=== PATIENT | female | born 1985 | race Caucasian/White ===

== ENCOUNTER 2016-09-01 19:40 | Emergency (ER) | payer OTHER ==
[2016-09-01 19:58] VITALS: RESP 18
--- NOTE | 2016-09-01 23:06 | ED ---
Psych HPI - General Source: patient, RN notes reviewed, old records reviewed Mode of arrival: ambulatory <MichelleMy - Last Filed: 09/02/16 02:41> <Vj Khan - Last Filed: 09/02/16 06:13> - General Chief Complaint: Psychiatric Symptoms Stated Complaint: suicidal Time Seen by Provider: 09/01/16 23:06 - History of Present Illness Initial Comments: this is a 30-year-old female presenting to the emergency department with chief complaint of suicidal ideation. She also reports that she's had thoughts of homicidal ideations. She was not coming U she would want to kill. Patient reports that she thought about trying falling asleep. Patient states that she' s been admitted for inpatient treatment in the past. She states that she does have medications and follows up with [facility] and takes them regularly. She reports that she's been feeling this way over the past few weeks. Patient is here with her friend. Friend reports that she has been somewhat neglectful to her children. Patient is very withdrawn. (My Martinez) - Related Data Home Medications Medication Instructions Recorded Confirmed [place] Carbonate 300 mg PO DAILY 09/01/16 09/01/16 Lurasidone [Latuda] 40 mg PO DAILY 09/01/16 09/01/16 Allergies Allergy/AdvReac Type Severity Reaction Status Date / Time acetaminophen Allergy Unknown Verified 09/01/16 19:58 [From Tylenol-Codeine #3] codeine phosphate Allergy Unknown Verified 09/01/16 19:58 [From Tylenol-Codeine #3] Review of Systems ROS Other: All systems not noted in ROS Statement are negative. <Cele Martinezily - Last Filed: 09/02/16 02:41> ROS Other: All systems not noted in ROS Statement are negative. <Vj Khan - Last Filed: 09/02/16 06:13> ROS Statement: Those systems with pertinent positive or pertinent negative responses have been documented in the HPI. Past Medical History Past Medical History: No Reported History Additional Past Medical History / Comment(s): First was a Vaginal Delivery in 2006, 9 lbs. 1 ounce. This is her second . she has had good care with me since 11 weeks gestation.her blood type is A+ antibody is negative, rubella immune, RPR nonreactive, HIV nonreactive, hepatitis B negative. She declined quad screen but had a normal anatomy ultrasoundat 19 weeks. group beta strep is negative. History of Any Multi-Drug Resistant Organisms: None Reported Past Surgical History: Orthopedic Surgery Additional Past Surgical History / Comment(s): 1.surgery on right leg 2003, cornelius in her femur. 2. LEEP Past Anesthesia/Blood Transfusion Reactions: No Reported Reaction Past Psychological History: Anxiety, Bipolar, Depression Smoking Status: Current every day smoker Past Alcohol Use History: None Reported Past Drug Use History: None Reported <My Martinez - Last Filed: 09/02/16 02:41> General Exam Limitations: no limitations General appearance: alert, in no apparent distress Head exam: Present: atraumatic, normocephalic, normal inspection Eye exam: Present: normal appearance, PERRL, EOMI. Absent: scleral icterus, conjunctival injection, periorbital swelling ENT exam: Present: normal exam, mucous membranes moist Neck exam: Present: normal inspection. Absent: tenderness, meningismus, lymphadenopathy Respiratory exam: Present: normal lung sounds bilaterally. Absent: respiratory distress, wheezes, rales, rhonchi, stridor Cardiovascular Exam: Present: regular rate, normal rhythm, normal heart sounds. Absent: systolic murmur, diastolic murmur, rubs, gallop, clicks GI/Abdominal exam: Present: soft, normal bowel sounds. Absent: distended, tenderness, guarding, rebound, rigid Extremities exam: Present: normal inspection, full ROM, normal capillary refill. Absent: tenderness, pedal edema, joint swelling, calf tenderness Back exam: Present: normal inspection Neurological exam: Present: alert, oriented X3, CN II-XII intact Psychiatric exam: Present: normal affect, depressed, homicidal ideation, suicidal ideation (Patient reports that she wants to harm herself. Patient reports that she does not care if she would turn the stove on and follow sleep. She reports that it she would even do this of her children were in the house.) . Absent: normal mood Skin exam: Present: warm, dry, intact, normal color. Absent: rash <My Martinez - Last Filed: 09/02/16 02:41> <Vj Khan - Last Filed: 09/02/16 06:13> - General Exam Comments Initial Comments: This is a 30-year-old female. No distress. (My Martinez) Medical Decision Making <My Martinez - Last Filed: 09/02/16 02:41> - Lab Data Result diagrams: 09/02/16 04:25 09/02/16 04:25 <Vj Khan - Last Filed: 09/02/16 06:13> - Medical Decision Making This is a 30-year-old female with suicidal ideations. Patient was evaluated by EPS after being medically clear. EPS stated that she may have multiple alarming statements about suicide and homicide. Patient will be petitioned. At this time patient will be in a psychiatric hold in the emergency department until his available bed is there. (My Martinez) Briefly spoke with patient, who had been sleeping, in order to fill clinical certification. I saw this patient in conjunction with the physician assistant clinical nurse manager. I performed independent history and physical exam. Agree with case management. (Vj Khan) - Lab Data Lab Results 09/02/16 09/02/16 09/02/16 Range/Units 01:18 01:18 04:25 WBC 5.2 (3.8-10.6) k/uL RBC 4.66 (3.80-5.40) m/uL Hgb 13.8 (11.4-16.0) gm/dL Hct 40.6 (34.0-46.0) % MCV 87.3 (80.0-100.0) fL MCH 29.7 (25.0-35.0) pg MCHC 34.0 (31.0-37.0) g/dL RDW 12.7 (11.5-15.5) % Plt Count 152 (150-450) k/uL Sodium (137-145) mmol/L Potassium (3.5-5.1) mmol/L Chloride (98-107) mmol/L Carbon Dioxide (22-30) mmol/L Anion Gap mmol/L BUN (7-17) mg/dL Creatinine (0.52-1.04) mg/dL Est GFR (MDRD) Af Amer (>60 ml/min/1.73 sqM) Est GFR (MDRD) Non-Af (>60 ml/min/1.73 sqM) Glucose (74-99) mg/dL Calcium (8.4-10.2) mg/dL Total Bilirubin (0.2-1.3) mg/dL AST (14-36) U/L ALT (9-52) U/L Alkaline Phosphatase (38-126) U/L Total Protein (6.3-8.2) g/dL Albumin (3.5-5.0) g/dL Urine Color Yellow Urine Appearance Cloudy H (Clear) Urine pH 5.5 (5.0-8.0) Ur Specific [place] 1.026 (1.001-1.035) Urine Protein Trace H (Negative) Urine Glucose (UA) Negative (Negative) Urine Ketones Negative (Negative) Urine Blood Negative (Negative) Urine Nitrite Negative (Negative) Urine Bilirubin Negative (Negative) Urine Urobilinogen 4.0 (<2.0) mg/dL Ur Leukocyte Esterase Negative (Negative) Urine RBC <1 (0-5) /hpf Urine WBC 2 (0-5) /hpf Ur Squamous Epith Cells 7 H (0-4) /hpf Amorphous Sediment Rare H (None) /hpf Urine Bacteria Rare H (None) /hpf Urine Mucus Few H (None) /hpf Urine HCG, Qual Not Detected (Not Detectd) Urine Opiates Screen Not Detected (NotDetected) Ur Oxycodone Screen Not Detected (NotDetected) Urine Methadone Screen Not Detected (NotDetected) Ur Propoxyphene Screen Not Detected (NotDetected) Ur Barbiturates Screen Not Detected (NotDetected) U Tricyclic Antidepress Not Detected (NotDetected) Ur Phencyclidine Scrn Not Detected (NotDetected) Ur Amphetamines Screen Not Detected (NotDetected) U Methamphetamines Scrn Not Detected (NotDetected) U Benzodiazepines Scrn Not Detected (NotDetected) Urine Cocaine Screen Not Detected (NotDetected) U Marijuana (THC) Screen Detected H (NotDetected) 09/02/16 Range/Units 04:25 WBC (3.8-10.6) k/uL RBC (3.80-5.40) m/uL Hgb (11.4-16.0) gm/dL Hct (34.0-46.0) % MCV (80.0-100.0) fL MCH (25.0-35.0) pg MCHC (31.0-37.0) g/dL RDW (11.5-15.5) % Plt Count (150-450) k/uL Sodium 139 (137-145) mmol/L Potassium 4.1 (3.5-5.1) mmol/L Chloride 106 (98-107) mmol/L Carbon Dioxide 25 (22-30) mmol/L Anion Gap 8 mmol/L BUN 7 (7-17) mg/dL Creatinine 0.80 (0.52-1.04) mg/dL Est GFR (MDRD) Af Amer >60 (>60 ml/min/1.73 sqM) Est GFR (MDRD) Non-Af >60 (>60 ml/min/1.73 sqM) Glucose 89 (74-99) mg/dL Calcium 9.5 (8.4-10.2) mg/dL Total Bilirubin 0.4 (0.2-1.3) mg/dL AST 46 H (14-36) U/L ALT 99 H (9-52) U/L Alkaline Phosphatase 49 (38-126) U/L Total Protein 6.2 L (6.3-8.2) g/dL Albumin 3.7 (3.5-5.0) g/dL Urine Color Urine Appearance (Clear) Urine pH (5.0-8.0) Ur Specific [place] (1.001-1.035) Urine Protein (Negative) Urine Glucose (UA) (Negative) Urine Ketones (Negative) Urine Blood (Negative) Urine Nitrite (Negative) Urine Bilirubin (Negative) Urine Urobilinogen (<2.0) mg/dL Ur Leukocyte Esterase (Negative) Urine RBC (0-5) /hpf Urine WBC (0-5) /hpf Ur Squamous Epith Cells (0-4) /hpf Amorphous Sediment (None) /hpf Urine Bacteria (None) /hpf Urine Mucus (None) /hpf Urine HCG, Qual (Not Detectd) Urine Opiates Screen (NotDetected) Ur Oxycodone Screen (NotDetected) Urine Methadone Screen (NotDetected) Ur Propoxyphene Screen (NotDetected) Ur Barbiturates Screen (NotDetected) U Tricyclic Antidepress (NotDetected) Ur Phencyclidine Scrn (NotDetected) Ur Amphetamines Screen (NotDetected) U Methamphetamines Scrn (NotDetected) U Benzodiazepines Scrn (NotDetected) Urine Cocaine Screen (NotDetected) U Marijuana (THC) Screen (NotDetected) Disposition <My Martinez - Last Filed: 09/02/16 02:41> <Vj Khan - Last Filed: 09/02/16 06:13> Clinical Impression: Mood disorder Disposition: ADMITTED IP TO THIS HOSP Condition: Fair Referrals: Isael Bazan MD [Primary Care Provider] - 1-2 days
[2016-09-02 01:50] LABS: Amorphous Sediment,Urine Rare /hpf; Appearance,Urine Cloudy (Clear); Bacteria,Urine Rare /hpf; Bilirubin,Urine Negative (Negative); Glucose,Urine (UA) Negative (Negative); Ketones,Urine Negative (Negative); Leukocyte Esterase,Urine Negative (Negative); Mucus,Urine Few /hpf; Nitrite,Urine Negative (Negative); PH, Urine 5.5 (5.0-8.0); Particle Count 7014; Protein,Urine Trace (Negative); RBC,Urine <1 /hpf (0-5); Specific Gravity,Urine 1.026 (1.001-1.035); Squamous Epithelial Cell,Urine 7 /hpf (0-4); UA Billing (MACRO vs. MICRO) MICRO; WBC,Urine 2 /hpf (0-5)
[2016-09-02 04:36] LABS: Basophils # (A) 0.1 k/uL (0-0.2); Basophils % (A) 1 %; CH 29.7; CHCM 34.2; Eosinophils # (A) 0.3 k/uL (0-0.7); Eosinophils % (A) 6 %; HCT 40.6 % (34.0-46.0); HDW 2.62; HGB 13.8 gm/dL (11.4-16.0); Luc # (Auto) 0.12; Luc % (Auto) 2; Lymphocytes # (A) 2.6 k/uL (1.0-4.8); Lymphocytes % (A) 50 %; MCH 29.7 pg (25.0-35.0); MCV 87.3 fL (80.0-100.0); Mean Platelet Volume 8.5; Monocytes # (A) 0.2 k/uL (0-1.0); Monocytes % (A) 5 %; Neutrophils # (A) 1.9 k/uL (1.3-7.7); Neutrophils % (A) 37 %; RBC 4.66 m/uL (3.80-5.40); RDW 12.7 % (11.5-15.5); WBC 5.2 k/uL (3.8-10.6); WBC (Perox) 4.97
[2016-09-02 04:46] LABS: ALT 99 U/L (9-52); AST 46 U/L (14-36); Alkaline Phosphatase 49 U/L (38-126); Anion Gap 8 mmol/L; Blood Urea Nitrogen 7 mg/dL (7-17); Calcium 9.5 mg/dL (8.4-10.2); Carbon Dioxide 25 mmol/L (22-30); Chloride 106 mmol/L (98-107); Glucose 89 mg/dL (74-99); Non-African American GFR(MDRD) >60 (>60 ml/min/1.73 sqM); Potassium 4.1 mmol/L (3.5-5.1); Sodium 139 mmol/L (137-145); Total Bilirubin 0.4 mg/dL (0.2-1.3); Total Protein 6.2 g/dL (6.3-8.2)
[2016-09-02 07:39] LABS: Manual Review Performed; RBC Morphology Normal
[2016-09-02 09:24] VITALS: BP 93/61; PULSE 68; TEMP 98.1
== END 2016-09-02 09:24 | disposition other institution (70) ==
LOC: SUPCPDRO 19:40 → EC 19:40
DX: F39 Unspecified mood [affective] disorder (principal); R45.851 Suicidal ideations; R45.850 Homicidal ideations; F31.9 Bipolar disorder, unspecified; F41.9 Anxiety disorder, unspecified; F17.200 Nicotine dependence, unspecified, uncomplicated; Z79.899 Other long term (current) drug therapy; Z88.6 Allergy status to analgesic agent; Z88.5 Allergy status to narcotic agent
CPT/HCPCS: 36415; 80053; 80306; 81001; 81025; 82075; 85025; 99285

== ENCOUNTER 2016-09-10 17:46 | Emergency (ER) | payer OTHER ==
[2016-09-10 17:53] VITALS: BP 114/60; PULSE 100; RESP 18; TEMP 98.1
--- NOTE | 2016-09-10 18:10 | ED ---
Back Pain HPI - General Chief Complaint: Back Pain/Injury Stated Complaint: back pain Time Seen by Provider: 09/10/16 18:02 Source: patient, RN notes reviewed Limitations: no limitations - History of Present Illness Initial Comments: 30 yo female presents to the ER with cc of right sided back pain. At this time the patient states she's had the pain off for about 6 months. Patient states his long the right side of her back. Patient states that she had an ultrasound to rule out anything in the abdomen and that showed enlarged been otherwise no normality. Patient states it's been the same. Patient states on and off. Patient states touching seems to make it worse. Patient states she was concerned due to the continued pain so she thought that she should be evaluated. Patient denies any recent fever, chills, shortness of breath, chest pain, back pain, abdominal pain, nausea vomiting, numbness or tingling, dysuria or hematuria, constipation or diarrhea, headaches or visual changes, or any other current symptoms. - Related Data Home Medications Medication Instructions Recorded Confirmed [place] Carbonate 300 mg PO DAILY 09/01/16 09/01/16 Lurasidone [Latuda] 40 mg PO DAILY 09/01/16 09/01/16 Allergies Allergy/AdvReac Type Severity Reaction Status Date / Time acetaminophen Allergy Unknown Verified 09/10/16 17:53 [From Tylenol-Codeine #3] codeine phosphate Allergy Unknown Verified 09/10/16 17:53 [From Tylenol-Codeine #3] Review of Systems ROS Statement: Those systems with pertinent positive or pertinent negative responses have been documented in the HPI. ROS Other: All systems not noted in ROS Statement are negative. Past Medical History Past Medical History: No Reported History Additional Past Medical History / Comment(s): First was a Vaginal Delivery in 2006, 9 lbs. 1 ounce. This is her second . she has had good care with me since 11 weeks gestation.her blood type is A+ antibody is negative, rubella immune, RPR nonreactive, HIV nonreactive, hepatitis B negative. She declined quad screen but had a normal anatomy ultrasoundat 19 weeks. group beta strep is negative. History of Any Multi-Drug Resistant Organisms: None Reported Past Surgical History: Orthopedic Surgery Additional Past Surgical History / Comment(s): 1.surgery on right leg 2003, cornelius in her femur. 2. LEEP Past Anesthesia/Blood Transfusion Reactions: No Reported Reaction Past Psychological History: Anxiety, Bipolar, Depression Smoking Status: Current every day smoker Past Alcohol Use History: None Reported Past Drug Use History: None Reported General Exam - General Exam Comments Initial Comments: General: The patient is awake and alert, in no distress, and does not appear acutely ill. Eye: Pupils are equal, round and reactive to light, extra-ocular movements are intact; there is normal conjunctiva bilaterally. No signs of icterus. Ears, nose, mouth and throat: There are moist mucous membranes. Neck: The neck is supple, there is no tenderness. Cardiovascular: There is a regular rate and rhythm. No murmur, rub or gallop is appreciated. Respiratory: Lungs are clear to auscultation, respirations are non-labored, breath sounds are equal. No wheezes, stridor, rales, or rhonchi. Gastrointestinal: Soft, non-distended, non-tender abdomen without masses or organomegaly noted. There is no rebound or guarding present. No CVA tenderness. Bowel sounds are unremarkable. Back: There is no tenderness to palpation in the midline. There is no obvious deformity. No rashes noted. There is some tenderness patient along the right paraspinal region through the lower thoracic and lumbar spine Musculoskeletal: Normal ROM, no tenderness, There is no pedal edema. There is no calf tenderness or swelling. Sensation intact. Pulses equal bilaterally 2+. Neurological: CN II-XII intact, There are no obvious motor or sensory deficits. Coordination appears grossly intact. Speech is normal. Skin: Skin is warm and dry and no rashes or lesions are noted. Psychiatric: Cooperative, appropriate mood & affect, normal judgment. Limitations: no limitations Course Vital Signs 09/10/16 17:51 Temperature 98.1 F Pulse Rate 100 Respiratory 18 Rate Blood Pressure 114/60 O2 Sat by Pulse 99 Oximetry Medical Decision Making - Medical Decision Making 30-year-old female presents for right side pain that is more paraspinal in nature. At this time we'll get x-rays patient's back. This x-ray is reviewed and negative. We discussed that this and patient makes likely has a lumbar strain that she keeps irritating. We discussed we will start her Motrin. Discussed follow-up with her Dr. mehran toussaint. Patient states she understood all questions were answered. She'll be discharged home. - Radiology Data Radiology results: report reviewed, image reviewed Disposition Clinical Impression: Lumbar strain Disposition: HOME SELF-CARE Condition: Stable Instructions: Chronic Back Pain (ED) Additional Instructions: Please use medication as discussed. Please follow up with family doctor if symptoms have not improved over the next two days. Please return to the emergency room if your symptoms increase or worsen or for any other concerns. Referrals: Isael Bazan MD [Primary Care Provider] - 1-2 days Time of Disposition: 18:37
--- NOTE | 2016-09-10 18:33 | XR ---
EXAMINATION TYPE: XR thoracic spine 2V DATE OF EXAM: 09/10/2016 6:28 PM COMPARISON: NONE HISTORY: Back pain TECHNIQUE: 3 views FINDINGS: The thoracic vertebra have normal spacing and alignment. I see no compression fracture. Pos terior elements are intact. There is no sign of paraspinal mass. IMPRESSION: Negative thoracic spine exam
--- NOTE | 2016-09-10 18:34 | XR ---
EXAMINATION TYPE: XR lumbar spine 2 or 3V DATE OF EXAM: 09/10/2016 6:28 PM COMPARISON: NONE HISTORY: Back pain TECHNIQUE: 3 views FINDINGS: Lumbar vertebra normal spacing and alignment. Posterior elements are intact. There is no si gn of a fracture. IMPRESSION: Normal lumbar spine. Normal sacroiliac joints.
== END 2016-09-10 18:42 | disposition home or self-care (01) ==
LOC: EC 17:46
DX: S39.012A Strain of muscle, fascia and tendon of lower back, initial encounter (principal); F31.9 Bipolar disorder, unspecified; F17.200 Nicotine dependence, unspecified, uncomplicated; Z79.899 Other long term (current) drug therapy; Z88.5 Allergy status to narcotic agent; Z88.6 Allergy status to analgesic agent; X58.XXXA Exposure to other specified factors, initial encounter
CPT/HCPCS: 72070; 72100; 99283

== ENCOUNTER 2016-11-03 14:04 | Inpatient (IN) | payer MEDICAID, OTHER ==
--- NOTE | 2016-11-03 14:22 | ED ---
General Adult HPI - General Chief complaint: Psychiatric Symptoms Stated complaint: Mental Health Time Seen by Provider: 11/03/16 14:16 Source: patient, RN notes reviewed Mode of arrival: ambulatory Limitations: no limitations - History of Present Illness Initial comments: Patient 31-year-old female who presents emergency room today with chief complaint of suicidal ideation. She does admit that over the last week and # increased thoughts. She does admit that she thought about cutting her wrist earlier today. She states that she did go to her counselor today but did not bring this up. States she's been unhappy with her counselor. Patient denies any other physical complaints. Denies any auditory or visual hallucinations. Denies any homicidal thoughts or plans. Patient denies any recent fever, chills , shortness of breath, chest pain, back pain, abdominal pain, nausea or vomiting , numbness or tingling, dysuria or hematuria, constipation or diarrhea, headaches or visual changes, or any other complaints. - Related Data Home Medications Medication Instructions Recorded Confirmed Gabapentin [Neurontin] 100 mg PO TID 11/03/16 11/03/16 OXcarbazepine [Trileptal] 300 mg PO BID 11/03/16 11/03/16 Paliperidone IM [Invega Sustenna] 156 mg IM Q30D 11/03/16 11/03/16 Allergies Allergy/AdvReac Type Severity Reaction Status Date / Time acetaminophen Allergy Unknown Verified 11/03/16 14:35 [From Tylenol-Codeine #3] codeine phosphate Allergy Unknown Verified 11/03/16 14:35 [From Tylenol-Codeine #3] Review of Systems ROS Statement: Those systems with pertinent positive or pertinent negative responses have been documented in the HPI. ROS Other: All systems not noted in ROS Statement are negative. Past Medical History Past Medical History: No Reported History Additional Past Medical History / Comment(s): First was a Vaginal Delivery in 2006, 9 lbs. 1 ounce. This is her second . she has had good care with ri since 11 weeks gestation.her blood type is A+ antibody is negative, rubella immune, RPR nonreactive, HIV nonreactive, hepatitis B negative. She declined quad screen but had a normal anatomy ultrasoundat 19 weeks. group beta strep is negative. History of Any Multi-Drug Resistant Organisms: None Reported Past Surgical History: Orthopedic Surgery Additional Past Surgical History / Comment(s): 1.surgery on right leg 2003, cornelius in her femur. 2. LEEP Past Anesthesia/Blood Transfusion Reactions: No Reported Reaction Past Psychological History: Anxiety, Bipolar, Depression Smoking Status: Current every day smoker Past Alcohol Use History: None Reported Past Drug Use History: None Reported General Exam - General Exam Comments Initial Comments: General: The patient is awake and alert, in no distress, and does not appear acutely ill. Eye: Pupils are equal, round and reactive to light, extra-ocular movements are intact. No nystagmus. There is normal conjunctiva bilaterally. No signs of icterus. Ears, nose, mouth and throat: There are moist mucous membranes and no oral lesions. Neck: The neck is supple, there is no tenderness or JVD. Cardiovascular: There is a regular rate and rhythm. No murmur, rub or gallop is appreciated. Respiratory: Lungs are clear to auscultation, respirations are non-labored, breath sounds are equal. No wheezes, stridor, rales, or rhonchi. Musculoskeletal: Normal ROM, no tenderness. Strength 5/5. Sensation intact. Pulses equal bilaterally 2+. Neurological: A&O x 3. CN II-XII intact, There are no obvious motor or sensory deficits. Coordination appears grossly intact. Speech is normal. Skin: Skin is warm and dry and no rashes or lesions are noted. Psychiatric: Cooperative, appropriate mood & affect, normal judgment. Limitations: no limitations Course Vital Signs 11/03/16 14:07 Temperature 98.7 F Pulse Rate 75 Respiratory 18 Rate Blood Pressure 108/61 O2 Sat by Pulse 99 Oximetry Medical Decision Making - Medical Decision Making Patient was examined by Psych here in the ER and they recommend to be admitted. - Lab Data Lab Results 11/03/16 11/03/16 Range/Units 15:08 15:08 Urine HCG, Qual Not Detected (Not Detectd) Urine Opiates Screen Not Detected (NotDetected) Ur Oxycodone Screen Not Detected (NotDetected) Urine Methadone Screen Not Detected (NotDetected) Ur Propoxyphene Screen Not Detected (NotDetected) Ur Barbiturates Screen Not Detected (NotDetected) U Tricyclic Antidepress Not Detected (NotDetected) Ur Phencyclidine Scrn Not Detected (NotDetected) Ur Amphetamines Screen Not Detected (NotDetected) U Methamphetamines Scrn Not Detected (NotDetected) U Benzodiazepines Scrn Not Detected (NotDetected) Urine Cocaine Screen Not Detected (NotDetected) U Marijuana (THC) Screen Detected H (NotDetected) Disposition Clinical Impression: Suicidal ideation Disposition: TRANSFER TO PSYCH HOSP/UNIT Condition: Stable Referrals: Isael Bazan MD [Primary Care Provider] - 1-2 days Time of Disposition: 16:31
[2016-11-03] MEDS ORDERED: ZIPRASIDONE 20 MG VIAL IM PRN (17:09)
[2016-11-03] MEDS ORDERED: LORazepam 1 MG TAB PO PRN (17:09)
[2016-11-03] MEDS ORDERED: MAG HYDROX/AL HYDROX/SIMETH 30 ML CUP PO PRN (17:09)
[2016-11-03] MEDS ORDERED: ACETAMINOPHEN TAB 325 MG TAB PO PRN (17:09)
[2016-11-03] MEDS ORDERED: LORazepam 2 MG/ML SYRINGE IM PRN (17:13)
[2016-11-03] MEDS: GABAPENTIN 100 MG CAP PO SCH (20:44)
[2016-11-03] MEDS: OXcarbazepine 300 MG TAB PO SCH (20:44)
[2016-11-04] MEDS: GABAPENTIN 100 MG CAP PO SCH (09:27)
[2016-11-04] MEDS: NICOTINE 14MG/24HR PATCH TRANSDERM SCH (09:27)
[2016-11-04] MEDS: OXcarbazepine 300 MG TAB PO SCH ×2 (09:27→21:08)
[2016-11-04 09:37] LABS: Basophils # (A) 0.1 k/uL (0-0.2); Basophils % (A) 1 %; CH 29.6; CHCM 33.9; Eosinophils # (A) 0.2 k/uL (0-0.7); Eosinophils % (A) 4 %; HCT 44.7 % (34.0-46.0); HDW 2.43; HGB 15.1 gm/dL (11.4-16.0); Luc # (Auto) 0.05; Luc % (Auto) 1; Lymphocytes # (A) 1.8 k/uL (1.0-4.8); Lymphocytes % (A) 41 %; MCH 29.5 pg (25.0-35.0); MCHC 33.6 g/dL (31.0-37.0); MCV 87.7 fL (80.0-100.0); Mean Platelet Volume 8.9; Monocytes # (A) 0.1 k/uL (0-1.0); Monocytes % (A) 3 %; Neutrophils # (A) 2.2 k/uL (1.3-7.7); Neutrophils % (A) 50 %; RDW 13.3 % (11.5-15.5); WBC 4.3 k/uL (3.8-10.6); WBC (Perox) 4.08
[2016-11-04 10:11] LABS: ALT 38 U/L (9-52); AST 20 U/L (14-36); Alkaline Phosphatase 45 U/L (38-126); Anion Gap 9 mmol/L; Blood Urea Nitrogen 12 mg/dL (7-17); Calcium 9.7 mg/dL (8.4-10.2); Carbon Dioxide 26 mmol/L (22-30); Chloride 105 mmol/L (98-107); Glucose 109 mg/dL (74-99); Non-African American GFR(MDRD) >60 (>60 ml/min/1.73 sqM); Potassium 4.1 mmol/L (3.5-5.1); Sodium 140 mmol/L (137-145); Total Bilirubin 0.4 mg/dL (0.2-1.3); Total Protein 6.9 g/dL (6.3-8.2)
--- NOTE | 2016-11-04 10:51 | P.HP ---
Psychiatric H&P - . H&P Date: 11/04/16 History & Physical: Allergies Allergy/AdvReac Type Severity Reaction Status Date / Time acetaminophen Allergy Unknown Verified 11/03/16 14:35 [From Tylenol-Codeine #3] codeine phosphate Allergy Unknown Verified 11/03/16 14:35 [From Tylenol-Codeine #3] Vital Signs Temp 97.9 F 11/04/16 06:57 Pulse 61 11/04/16 06:57 Resp 12 11/04/16 06:57 BP 90/54 11/04/16 06:57 Pulse Ox 95 11/03/16 19:42 Intake & Output 11/03/16 11/04/16 11/04/16 18:59 06:59 18:59 Weight 61.235 kg Laboratory Last Values Urine HCG, Qual Not Detected (Not Detectd) 11/03/16 15:08 Urine Opiates Screen Not Detected (NotDetected) 11/03/16 15:08 Ur Oxycodone Screen Not Detected (NotDetected) 11/03/16 15:08 Urine Methadone Screen Not Detected (NotDetected) 11/03/16 15:08 Ur Propoxyphene Screen Not Detected (NotDetected) 11/03/16 15:08 Ur Barbiturates Screen Not Detected (NotDetected) 11/03/16 15:08 U Tricyclic Antidepress Not Detected (NotDetected) 11/03/16 15:08 Ur Phencyclidine Scrn Not Detected (NotDetected) 11/03/16 15:08 Ur Amphetamines Screen Not Detected (NotDetected) 11/03/16 15:08 U Methamphetamines Scrn Not Detected (NotDetected) 11/03/16 15:08 U Benzodiazepines Scrn Not Detected (NotDetected) 11/03/16 15:08 Urine Cocaine Screen Not Detected (NotDetected) 11/03/16 15:08 U Marijuana (THC) Screen Detected (NotDetected) H 11/03/16 15:08 11/04/16 08:32 DATE OF SERVICE: 11/04/2016 IDENTIFYING DATA: This patient is a 31-year-old single female who was admitted to the mental health unit through the emergency room on a voluntary admit. HISTORY OF PRESENT ILLNESS: The patient presents with depressed mood, and suicidal ideation. Patient states that she has not felt good for a long time and now is feeling worse over the last 2 weeks. States she was admitted to [facility] in August and she was placed on Trileptal, paliperidone injection, and gabapentin. States that she thought this was working well and still thinks it is working and does not want to have any meds changed contrary to what she said in the emergency room. She states that she was taking the gabapentin 3 times a day but felt out of it so she stopped the midday dose now only taking it morning and bedtime. Patient states that she feels that she just doesn't want to live anymore. States she does not think about her children because that might stop her from taking her life. Patient states that she's been treated for a number of years for bipolar disorder, reports she's been on Abilify, Seroquel, lithium, and states that at one point her nurse practitioner was giving her antidepressants that made her worse. She has a 9- year-old and a 3-year-old she reports because of the children she cannot attend groups at [facility]. States she doesn't like to do something that's new that her therapist is trying to do with her such as coping skills. She denies that she' s ever cut herself burned herself or other self-injurious behavior. She is currently on a 60[address] order.. She did not mention anything about CPS. PAST PSYCHIATRIC HISTORY: Was hospitalized at [facility] this past August, all of her meds were stopped and they started her on Trileptal 300 mg twice a day, paliperidone was started she received her injection yesterday, and gabapentin.. PAST MEDICAL HISTORY: None. ALLERGIES: Acetaminophen codeine. CHEMICAL DEPENDENCY HISTORY: Reports that she stop smoking marijuana about 2 weeks ago. Denies other drugs or alcohol. FAMILY PSYCHIATRIC HISTORY: Her mother is schizophrenic, she does not know about her brother and sister they have mental illness. FAMILY CHEMICAL DEPENDENCY HISTORY: Unaware. LEGAL HISTORY: Denies. SOCIAL HISTORY: Patient lives with HER-2 children age 9 and 3, the father of the 9 year-old is in fpc for 24 years, the 3-year-old father has never been involved in the child. MENTAL STATUS EXAM: Patient alert and oriented 3, good eye contact, fair groomed in hospital attire/street clothing. Speech normal volume, rate and production. Coherent, logical and goal directed thought process. No JANINA, no FOI. No TB/TW/ TI Denied auditory and visual hallucinations. Denied paranoid ideation, delusions or IOR. Memory grossly intact Cognition average Mood sad, dysphoric, affect and constricted, congruent with mood. + suicidal ideation, denies homicidal ideation. Insight none; Judgment grossly intact for treatment purposes . STRENGTHS: Housing. WEAKNESSES: Poor coping skills. IMPRESSIONS: 31-year-old single female came to the emergency room on her own for suicidal ideation that has increased over the past 2 weeks. She met with her counselor yesterday and did not report this, she had her paliperidone injection yesterday. She told the emergency room staff that she was interested in changing meds as they were not working, now she states they are working and does not want any change or addition. She reports chronic suicidal ideation, with chronic dysphoria. She cannot recall the last time that she was manic. She denies hearing voices, denies having command hallucinations. Although she denies self injurious behavior she has had thoughts of cutting. Although it may not have a direct effect the possibility that she is going through cannabis withdrawal may be part of this mood change. She remains suicidal, dysphoric,hopeless, feeling worthless. Bipolar disorder type I,MRE depressed Suicide ideation Cannabis use disorder, severe, in early remission PLAN: Continue inpatient psychiatric admission for safety, and treatment. Suicide precautions and every 15 minute checks Continue Trileptal, continue paliperidone injection/long acting, continue gabapentin increase the bedtime dose.. Recommend to [facility] increased intensity of treatment, coping skills CBT. Milieu therapy 11/04/16 10:19
[2016-11-04] MEDS ORDERED: GABAPENTIN 100 MG CAP PO SCH (21:00)
--- NOTE | 2016-11-05 09:15 | HP ---
Andre Anderson is a 31-year-old female who was admitted to the Psychiatric Unit at [facility]. She had come in with the chief complaint of suicidal ideation. She thought about cutting her wrist. She was unhappy with her counselor and came in for further evaluation. Medications prior to admission were gabapentin, Trileptal and paliperidone. Past medical history is negative for asthma. She had chicken pox as a child. She has no history of COPD. She has been RPI nonreactive, HIV negative and hep B negative as well. Past medical history is positive for anxiety, depression and bipolar disorder. SOCIAL HISTORY: Patient is a current every day smoker. FAMILY HISTORY: Both her parents are healthy. She is allergic to ACETAMINOPHEN WITH CODEINE. Review of systems is noncontributory. On physical examination, respiratory rate is 12, pulse rate of 61, temperature 97.9, blood pressure 90/54, O2 sat on room air is 95%. HEENT is unremarkable. Chest is clear. Cardiovascular system reveals an S1, S2. Abdomen is soft. There is no pedal edema. IMPRESSION: 1. Bipolar disorder with anxiety and depression. 2. Suicidal ideation. Patient does not seem to have an active medical problems at this time. Will follow her closely if need be. WALLY
[2016-11-05] MEDS: NICOTINE 14MG/24HR PATCH TRANSDERM SCH (09:36)
[2016-11-05] MEDS: GABAPENTIN 100 MG CAP PO SCH (09:36)
[2016-11-05] MEDS: OXcarbazepine 300 MG TAB PO SCH ×2 (09:36→20:11)
[2016-11-05 10:32] LABS: Appearance,Urine Clear (Clear); Bilirubin,Urine Negative (Negative); Glucose,Urine (UA) Negative (Negative); Ketones,Urine Negative (Negative); Leukocyte Esterase,Urine Negative (Negative); Nitrite,Urine Negative (Negative); PH, Urine 5.5 (5.0-8.0); Protein,Urine Negative (Negative); Specific Gravity,Urine 1.003 (1.001-1.035); UA Billing (MACRO vs. MICRO) CHEM; Urobilinogen,Urine <2.0 mg/dL (<2.0)
--- NOTE | 2016-11-05 15:21 | P.PN ---
Progress Note - Text INTERVERAL HISTORY: Patient was discussed at team treatment meeting, review of record, met with patient Staff reports that in goal setting this morning she was going to try to have a better attitude more positive thinking when she was asked how she would do it she stated she had no idea. Received a progress note from [facility] medication review on October 13 in that note they noted that patient was taking medications according to the hospitalization that she had just had that she had run out of the oral paliperidone. She also reported that she was smoking a lot of marijuana and this was while she was on lithium and reported to the chief writer that she didn't think she was going to need the marijuana because she thought medications were good. This sounds similar to what she told me that the medications that she is currently on her working but then she continues to report depression and suicidal ideation. In an atypical fashion even when discussing what would happen to her children she continues to report suicidal ideation stating "once I'm gone I won't have to worry" Today she states that her friend is going to court to become a temporary guardian of her children, states this is hard for her but she knows that it's best for her children. I asked her if this was possibly a plan for her to commit suicide knowing that her children are already in guardianship with her friend. She states no "this is a way that I can get more treatment". We discussed the fact that she is here with depression and suicide ideation and she will not let us change any medications, she states that she is willing to consider stopping gabapentin because she thinks it makes her depressed and then suicidal. I raised lithium again to her and she says no that there were problems with her liver I explained that lithium doesn't impact the liver. Later she said is there anything like lithium that she could take I explained no its unique. Later in the day she came up to the desk requesting to be transferred to another hospital. Before that there had been a very large loud disruption on the unit. MENTAL STATUS EXAM: Patient alert and oriented 3, good eye contact, fair groomed in hospital attire/street clothing. Speech normal volume, rate and production. Coherent, logical and goal directed thought process. No JANINA, no FOI. No TB/TW/ TI Denied auditory and visual hallucinations. Denied paranoid ideation, delusions or IOR. Memory grossly intact Cognition average Mood sad, dysphoric, affect and constricted, congruent with mood. + suicidal ideation, denies homicidal ideation. Insight none; Judgment grossly intact for treatment purposes . IMPRESSIONS: 31-year-old single female came to the emergency room on her own for suicidal ideation that has increased over the past 2 weeks. She met with her counselor yesterday and did not report this, she had her paliperidone injection yesterday. She told the emergency room staff that she was interested in changing meds as they were not working, now she states they are working and does not want any change or addition. She reports chronic suicidal ideation, with chronic dysphoria. She cannot recall the last time that she was manic. She denies hearing voices, denies having command hallucinations. Although she denies self injurious behavior she has had thoughts of cutting. Although it may not have a direct effect the possibility that she is going through cannabis withdrawal may be part of this mood change. She remains suicidal, dysphoric,hopeless, feeling worthless. Bipolar disorder type I,MRE depressed Suicide ideation Cannabis use disorder, severe, in early remission PLAN: Continue inpatient psychiatric admission for safety, and treatment. Suicide precautions and every 15 minute checks Continue Trileptal, continue paliperidone injection/long acting, discontinue gabapentin Recommend to [facility] increased intensity of treatment, coping skills CBT. Milieu therapy 11/04/16 10:19
[2016-11-05] MEDS: diphenhydrAMINE 25 MG CAP PO SCH (20:11)
--- NOTE | 2016-11-06 08:54 | P.PN ---
Progress Note - Text Progress Note - Text INTERVERAL HISTORY: Patient was discussed at team treatment meeting, review of record, met with patient Staff reports that she attends groups but no participation. She is reporting that she thinks she is doing good. She says goes to groups, she takes her meds, she takes her shower. Yesterday her friend received temp guardian for her children, she still says it is so she can go to more counseling sessions, groups at [facility], not as plan to kill herself, she states she no longer is suicidal. We discussed the fact that she is here with depression and suicide ideation and will not let us change any medications, she requested to stop gabapentin because she thinks it makes her depressed and then suicidal. It was d/c'd after she received morning dose yesterday. I raised lithium again to her and she says no insists her liver was harmed by it. She would like to go to [facility] as they have more therapy than we do. MENTAL STATUS EXAM: Patient alert and oriented 3, good eye contact, fair groomed in hospital attire/street clothing. Speech normal volume, rate and production. Coherent, logical and goal directed thought process. No JANINA, no FOI. No TB/TW/ TI Denied auditory and visual hallucinations. Denied paranoid ideation, delusions or IOR. Memory grossly intact Cognition average Mood sad, dysphoric, affect flat, congruent with mood. Denies suicidal ideation, denies homicidal ideation. Insight none; Judgment grossly intact for treatment purposes . IMPRESSIONS: 31-year-old single female came to the emergency room on her own for suicidal ideation that has increased over the past 2 weeks. She continues with flat affect, ?blunted mood, now denies SI but this seems w/o any real change. She seems to be minimizing she has no change in mood. Concern is her granting guardianship of children so that she has them cared for when/if she kills herself. Bipolar disorder type I,MRE depressed Suicide ideation Cannabis use disorder, severe, in early remission PLAN: Continue inpatient psychiatric admission for safety, and treatment. Suicide precautions and every 15 minute checks Continue Trileptal, continue paliperidone injection/long acting Recommend to [facility] increased intensity of treatment, coping skills CBT. Milieu therapy 11/04/16 10:19
[2016-11-06] MEDS: OXcarbazepine 300 MG TAB PO SCH ×2 (09:00→20:47)
[2016-11-06] MEDS: GABAPENTIN 100 MG CAP PO SCH (09:01)
[2016-11-06] MEDS: NICOTINE 14MG/24HR PATCH TRANSDERM SCH (09:19)
[2016-11-06] MEDS: diphenhydrAMINE 25 MG CAP PO SCH (20:47)
[2016-11-07 08:40] VITALS: BMI 20.2
[2016-11-07] MEDS: OXcarbazepine 300 MG TAB PO SCH ×2 (08:45→20:13)
--- NOTE | 2016-11-07 11:46 | P.PN ---
Progress Note - Text Interval history: The patient is found in the hallway she follows me to an interview room. She was admitted for suicidal ideation in the context of feeling depressed with a history of bipolar disorder. She is being treated with Trileptal she is on Invega Sustenna. She states Dr. Bush has been discussing the use of lithium with her and although she had been "putting her off" she is now interested in trying that medication again. Labs were reviewed BUN/creatinine creatinine and TSH are within normal limits. We discussed benefits and side effects of lithium. She states that she does feel safer but does still feel significantly depressed. Mental status exam: The patient is a female she appears older than her stated age. She has short hair she is a visible tattoo on her neck. Eye contact is appropriate she is soft-spoken but does have spontaneous speech. She describes a depressed mood she was admitted with suicidal ideation but feels safe here in the hospital. She does not appear hypomanic or manic at this time. She does not appear psychotic. Insight and judgment limited. She demonstrates no verbal or physical aggressiveness. Plan: The patient will continue on her current psychiatric medications we will add lithium carbonate 300 mg at bedtime for further stabilization of mood and possibly addressed suicidal thoughts. Vital signs reviewed blood pressure is on lower and we will monitor further.
[2016-11-07] MEDS: LITHIUM CARBONATE 300 MG CAP PO SCH (20:13)
[2016-11-07] MEDS: diphenhydrAMINE 25 MG CAP PO SCH (20:13)
[2016-11-08] MEDS: OXcarbazepine 300 MG TAB PO SCH ×2 (09:07→20:43)
--- NOTE | 2016-11-08 10:38 | P.PN ---
Progress Note - Text Interval history: The patient is found in group she follows me to an interview room. She reports that her mood is "good". She states she had a very positive visit from friends last evening and she anticipates they will visit again this evening. She has been able to speak to her children daily via phone. A close friend of her has temporary guardianship of her children. We did initiate the lithium last evening she is reporting no concerns or side effects at this point. She has no questions regarding her medication in general. She voices thoughts of wanting to be discharged soon and hopes to engage in treatment with [facility]. Mental status exam: The patient is a female dressed in her own clothing. Hygiene grooming adequate. Eye contact is appropriate speech is fluent spontaneous nonpressured. She states her mood is "good". Affect demonstrates a mild range of expression. She is reporting no suicidal or homicidal ideation intent or plan. She endorses no auditory or visual hallucinations or specific delusions there is no evidence of psychosis. She does not appear hypomanic or manic. She remains oriented to person place and date. Insight and judgment improving. Plan: The patient will continue on her current medications. We will encourage her continued participation in the milieu. We will monitor her for safety. Vital signs reviewed.
[2016-11-08] MEDS: MAGNESIUM HYDROXIDE 2,400 MG/10 ML CUP PO PRN (13:50)
[2016-11-08] MEDS: LITHIUM CARBONATE 300 MG CAP PO SCH (20:43)
[2016-11-08] MEDS: diphenhydrAMINE 25 MG CAP PO SCH (20:43)
[2016-11-09] MEDS: OXcarbazepine 300 MG TAB PO SCH ×2 (08:57→20:50)
--- NOTE | 2016-11-09 11:47 | P.PN ---
Progress Note - Text INTERVERAL HISTORY: Patient was discussed at team treatment meeting, review of record, met with patient Staff reports that she attends groups is participating more. Social work from [facility] said that they will be able to provide additional services to her including peer support. She has reported for the past 2 days that her mood is good, she had visitors over the weekend which made her happy. She believes that stopping the gabapentin has been helpful that she is not depressed, and that her mind is not as cloudy. She also states that she has been taking the lithium now for 2 nights and has not noticed any negative side effects other than possibly constipation but she had that before she started lithium. She is willing to allow an increase of the lithium. She would like to be discharged as soon as possible, I said that we could possibly consider discharge tomorrow or Wednesday depending upon how she does with the lithium. She is denying suicidal ideation. Denies that giving her friend custody of her children is part of a plan to take her life. Says she wants the best for her children, and believes that she needs to have more treatment and that she cannot manage her children and get the treatment. MENTAL STATUS EXAM: Patient alert and oriented 3, good eye contact, fair groomed in hospital attire/street clothing. Speech normal volume, rate and production. Coherent, logical and goal directed thought process. No JANINA, no FOI. No TB/TW/ TI Denied auditory and visual hallucinations. Denied paranoid ideation, delusions or IOR. Memory grossly intact Cognition average Mood neutral, affect full range decreased intensity, congruent with mood. Denies suicidal ideation, denies homicidal ideation. Insight none; Judgment grossly intact for treatment purposes . IMPRESSIONS: 31-year-old single female came to the emergency room on her own for suicidal ideation that has increased over the past 2 weeks. Her mood and affect have improved, denies SI now for several days. Has aggreed to lithium, which may help to reduce chance of suicide. Bipolar disorder type I,MRE depressed Suicide ideation Cannabis use disorder, severe, in early remission PLAN: Continue inpatient psychiatric admission for safety, and treatment. Suicide precautions and every 15 minute checks Increase lithium 600mg tonight, 900mg tomorrow night. Continue Trileptal, continue paliperidone injection/long acting Recommend to [facility] increased intensity of treatment, coping skills CBT. Milieu therapy
[2016-11-09] MEDS: MAGNESIUM HYDROXIDE 2,400 MG/10 ML CUP PO PRN (15:01)
[2016-11-09] MEDS ORDERED: diphenhydrAMINE 25 MG CAP PO PRN (16:06)
[2016-11-09] MEDS ORDERED: LITHIUM CARBONATE 300 MG CAP PO SCH (21:00)
--- NOTE | 2016-11-09 22:10 | CONS ---
This patient was admitted in my absence with the diagnosis of bipolar depression , substance abuse. She has had long-standing history of insulin-dependent diabetes and depression. She has been on Levemir 22 units once a day and NovoLog sliding scale. She has also been on Lasix 40 mg once a day, lisinopril 5 mg once a day, gabapentin 100 mg at night, Celexa 200 mg once a day and Apixaban 5 mg twice a day. Physical exam was done on admission. Diagnoses were: 1. Bipolar depression. 2. Substance abuse. 3. Insulin-dependent diabetes. RECOMMENDATIONS: None. MTDD
[2016-11-10 07:33] VITALS: BP 102/51; PULSE 62; RESP 14; TEMP 97.9
--- NOTE | 2016-11-10 08:43 | P.PN ---
Progress Note - Text INTERVERAL HISTORY: Patient was discussed at team treatment meeting, review of record, met with patient Staff reports that she attends groups is participating more. Social work from [facility] said that they will be able to provide additional services to her including peer support. She has reported for the past 2 days that her mood is good, she had visitors over the weekend which made her happy. She believes that stopping the gabapentin has been helpful that she is not depressed, and that her mind is not as cloudy. She also states that she has been taking the lithium now for 2 nights and has not noticed any negative side effects other than possibly constipation but she had that before she started lithium. She is willing to allow an increase of the lithium. She would like to be discharged as soon as possible, I said that we could possibly consider discharge tomorrow or Wednesday depending upon how she does with the lithium. She is denying suicidal ideation. Denies that giving her friend custody of her children is part of a plan to take her life. Says she wants the best for her children, and believes that she needs to have more treatment and that she cannot manage her children and get the treatment. MENTAL STATUS EXAM: Patient alert and oriented 3, good eye contact, fair groomed in hospital attire/street clothing. Speech normal volume, rate and production. Coherent, logical and goal directed thought process. No JANINA, no FOI. No TB/TW/ TI Denied auditory and visual hallucinations. Denied paranoid ideation, delusions or IOR. Memory grossly intact Cognition average Mood neutral, affect full range decreased intensity, congruent with mood. Denies suicidal ideation, denies homicidal ideation. Insight none; Judgment grossly intact for treatment purposes . IMPRESSIONS: 31-year-old single female came to the emergency room on her own for suicidal ideation that has increased over the past 2 weeks. Her mood and affect have improved, denies SI now for several days. Has aggreed to lithium, which may help to reduce chance of suicide. Bipolar disorder type I,MRE depressed Suicide ideation Cannabis use disorder, severe, in early remission PLAN: Continue inpatient psychiatric admission for safety, and treatment. Suicide precautions and every 15 minute checks Increase lithium 600mg tonight, 900mg tomorrow night. Continue Trileptal, continue paliperidone injection/long acting Recommend to [facility] increased intensity of treatment, coping skills CBT. Milieu therapy
[2016-11-10] MEDS: OXcarbazepine 300 MG TAB PO SCH (09:14)
--- NOTE | 2016-11-10 11:28 | P.DS ---
Providers Date of admission: 11/03/16 17:04 Expected date of discharge: 11/10/16 Attending physician: Candy Valenzuela MD Consults: 11/03/16 17:09 Consult Physician Routine Consulting Provider: Isael Bazan Consult Reason/Comments: follow up h & P Do you want consulting provider notified?: Yes Primary care physician: Isael Bazan Hospital Course: BRIEF ADMISSION HISTORY: This 31-year-old single female admitted herself on a voluntary admit due to having increasing thoughts of suicide over the previous 2 weeks. She had been admitted to [facility] in August and she was placed on Trileptal paliperidone injection and gabapentin. She reported to her outpatient prescriber that she felt the meds were working well. However over the past 2 weeks she began to feel more depressed and with that the suicidal ideation increased. HOSPITAL COURSE: The patient presented in a very dysphoric, psychomotor retardation, with suicide ideation. She never reported a specific plan just stating that she had many possibilities. Patient was unwilling to allow any change in her medication , the day prior to admission she just received her paliperidone long acting injection. The patient has been diagnosed with bipolar disorder, treated with Abilify and Seroquel in the past she states that she was also treated with antidepressants that she thinks made her situation worse. Once we received her [facility] outpatient note it seemed as if she had been on lithium while at the same time using cannabis. Patient was unwilling to consider lithium. She continued to be very dysphoric and flat affect, no interaction in groups. At one point she requested to transfer to [facility] stating that they did more therapy than here. We reviewed that she needs coping skills more then insight oriented therapy. We again reviewed the possibility of starting lithium she refused, she requested to stop gabapentin stating that she thought it was making her depressed. We complied with that. Over the weekend she agreed to restart lithium. On Wednesday she reported she was not suicidal and that her mood was better. She agreed to an additional increase of the lithium to 600 mg. She had not endorsed suicidal ideation for several days. We were concerned that she had granted her friend Shelby guardianship over her children but patient denied adamantly that this was not part of a plan to allow her to feel her children were taking care of so that she could kill herself. She did begin to participate more in groups, setting goals for herself. She denied suicidal ideation, reporting that her mood was better, looking forward to having increased therapy at [facility]. Wanting to have DBT therapy, not sure how she came with that idea I recommended CBT. Family meeting with Shelby and then discharged today. MENTAL STATUS EXAM: Patient alert and oriented 3, good eye contact, fair groomed in hospital attire/street clothing. Speech normal volume, rate and production. Coherent, logical and goal directed thought process. No JANINA, no FOI. No TB/TW/ TI Denied auditory and visual hallucinations. Denied paranoid ideation, delusions or IOR. Memory grossly intact Cognition average Mood euthymic affect full range decreased intensity, congruent with mood. Denies suicidal ideation, denies homicidal ideation. Insight none; Judgment grossly intact for treatment purposes . IMPRESSIONS: 31-year-old single female came to the emergency room on her own for suicidal ideation that has increased over the past 2 weeks. Her mood and affect have improved, denies SI now for several days. Has aggreed to lithium, which may help to reduce chance of suicide. Bipolar disorder type I,MRE depressed Suicide ideation Cannabis use disorder, severe, in early remission PLAN: SW to arrange [facility] follow up. Discharge after family conference. Pertinent Studies: none Procedures: none Plan - Discharge Summary New Discharge Prescriptions: New diphenhydrAMINE [Benadryl] 50 mg PO HS PRN #60 cap PRN Reason: Insomnia [place] 600 mg PO HS #60 cap Continue OXcarbazepine [Trileptal] 300 mg PO BID #60 Paliperidone IM [Invega Sustenna] 156 mg IM Q30D #1 Discontinued Gabapentin [Neurontin] 100 mg PO TID Discharge Medication List [place] 600 mg PO HS #60 cap 11/10/16 [Rx] OXcarbazepine [Trileptal] 300 mg PO BID #60 11/10/16 [Rx] Paliperidone IM [Invega Sustenna] 156 mg IM Q30D #1 11/10/16 [Rx] diphenhydrAMINE [Benadryl] 50 mg PO HS PRN #60 cap 11/10/16 [Rx] Follow up Appointment(s)/Referral(s): Intake, Intake [Other] - 11/17/16 10:00 am Isael Bazan MD [Primary Care Provider] - 1-2 days
[2016-12-03] MEDS ORDERED: PALIPERIDONE IM 156 MG/ML SYG IM SCH (09:00)
== END 2016-11-10 13:10 | disposition home or self-care (01) | DRG 885 ==
LOC: EC 14:04 → 3MHU 17:04
PROVIDERS: ADMIT Psychiatry & Neurology Addiction Medicine; ATTEND Psychiatry & Neurology Addiction Medicine
DX: F31.9 Bipolar disorder, unspecified (principal); R45.851 Suicidal ideations; E11.9 Type 2 diabetes mellitus without complications; F12.21 Cannabis dependence, in remission; F17.200 Nicotine dependence, unspecified, uncomplicated; F41.9 Anxiety disorder, unspecified; Z79.899 Other long term (current) drug therapy; Z88.1 Allergy status to other antibiotic agents; Z88.5 Allergy status to narcotic agent
CPT/HCPCS: 80053; 80183; 80306; 81003; 81025; 82075; 84443; 85025; 99285

== ENCOUNTER 2016-12-11 15:37 | Inpatient (IN) | payer MEDICAID, OTHER ==
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
[2016-12-11 16:53] LABS: Acetaminophen <10.0 ug/mL; Salicylate <1.0 mg/dL
[2016-12-11 17:31] LABS: Lithium 0.2 mmol/L
[2016-12-11] MEDS ORDERED: MAGNESIUM HYDROXIDE 2,400 MG/10 ML CUP PO PRN (18:35)
[2016-12-11] MEDS ORDERED: LORazepam 1 MG TAB PO PRN (18:35)
[2016-12-11] MEDS ORDERED: MAG HYDROX/AL HYDROX/SIMETH 30 ML CUP PO PRN (18:35)
[2016-12-11] MEDS ORDERED: ZIPRASIDONE 20 MG VIAL IM PRN (18:35)
[2016-12-11] MEDS ORDERED: ACETAMINOPHEN TAB 325 MG TAB PO PRN (18:35)
[2016-12-11] MEDS ORDERED: OLANZapine ODT 5 MG TAB PO PRN (18:42)
[2016-12-11] MEDS: OXcarbazepine 300 MG TAB PO SCH (20:32)
[2016-12-12 08:43] LABS: Basophils % (A) 1 %; CH 30.3; CHCM 34.4; Eosinophils # (A) 0.3 k/uL (0-0.7); Eosinophils % (A) 6 %; HCT 39.6 % (34.0-46.0); HDW 2.67; HGB 13.4 gm/dL (11.4-16.0); Luc # (Auto) 0.09; Luc % (Auto) 2; Lymphocytes # (A) 1.6 k/uL (1.0-4.8); Lymphocytes % (A) 38 %; MCH 30.1 pg (25.0-35.0); MCHC 33.9 g/dL (31.0-37.0); MCV 88.7 fL (80.0-100.0); Mean Platelet Volume 8.6; Monocytes # (A) 0.2 k/uL (0-1.0); Monocytes % (A) 4 %; Neutrophils # (A) 2.2 k/uL (1.3-7.7); Neutrophils % (A) 50 %; RBC 4.46 m/uL (3.80-5.40); RDW 14.6 % (11.5-15.5); WBC 4.3 k/uL (3.8-10.6)
[2016-12-12 09:03] LABS: ALT 44 U/L (9-52); AST 21 U/L (14-36); Alkaline Phosphatase 53 U/L (38-126); Anion Gap 9 mmol/L; Blood Urea Nitrogen 9 mg/dL (7-17); Calcium 9.6 mg/dL (8.4-10.2); Carbon Dioxide 25 mmol/L (22-30); Chloride 106 mmol/L (98-107); Glucose 94 mg/dL (74-99); Non-African American GFR(MDRD) >60 (>60 ml/min/1.73 sqM); Potassium 4.4 mmol/L (3.5-5.1); Sodium 140 mmol/L (137-145); Total Bilirubin 0.2 mg/dL (0.2-1.3); Total Protein 6.4 g/dL (6.3-8.2)
[2016-12-12] MEDS: OXcarbazepine 300 MG TAB PO SCH (09:27)
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
[2016-12-12] MEDS: VENLAFAXINE HCL 37.5 MG TAB PO SCH (11:52)
[2016-12-12] MEDS: OXcarbazepine 150 MG TAB PO SCH (20:11)
[2016-12-12] MEDS: diphenhydrAMINE 50 MG CAP PO PRN (20:11)
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
[2016-12-13] MEDS: OXcarbazepine 150 MG TAB PO SCH ×2 (09:20→20:02)
[2016-12-13] MEDS: VENLAFAXINE HCL 37.5 MG TAB PO SCH (09:20)
[2016-12-13] MEDS ORDERED: hydrOXYzine PAMOATE 25 MG CAP PO PRN (10:30)
--- NOTE | 2016-12-13 10:30 | P.PN ---
Progress Note - Text Date of service: 12/13/2016 Chief complaint: "I feel little better" Subjective: The patient has been seen today as follow-up, chart reviewed, case discussed with the treatment team. Patient slept about 6 hours last night. Patient has been going to groups and other unit activities. Patient reports fair appetite problems. Patient reports her depression still there but she minimized feeling hopeless and denies suicidal thoughts today. She reports her anxiety still high and has bouts of racing thoughts, and feeling edgy. The patient denies any manic symptoms including sustained period of time with elevated or irritable mood, impulsive or irrational behavior, inflated self- esteem, or absence need to sleep due to increases goal-directed activities. The patient denies any auditory or visual hallucinations. Also the patient denies any paranoid ideation. The patient is compliant with her medications and denies any adverse reactions. Review of other systems: Patient denies any physical symptoms besides what has been mentioned above. No breathing problems, no chest pain reported today. Objective: Vitals has been reviewed. Mental status examination; Appearance: The patient appears stated age, adequately groomed, no specific features. Gait/posture: Normal arm was swinging: No abnormal movements. Attitude and behavior: Not fully engaged, superficially cooperative, intermittent eye contact. Motor activity: Decreased psychomotor activity Speech: Soft, low tone, not spontaneous Mood: Depressed Affect: Blunted Thought form: Not spontaneous, few, but goal-directed, linear, coherent. Thought content: Non-delusional, denies suicidal thoughts. Denies homicidal thoughts. Paranoid ideation Perception: Denies any auditory or visual hallucinations Attention: No impairment. Patient was able to repeat serial 7. Orientation: Patient patient was fully oriented to time place person and situation. Insight: Patient has limited insight about his psychiatric disorder. Judgment: Patient has limited judgment about his psychiatric treatment. Assessment: Bipolar disorder type I most recent episode is depressive with psychotic features R/O PTSD Cannabis use disorder severe Nicotine use disorder severe Opioid use disorder, in remission. Plan: Continue with inpatient psychiatric hospitalization for monitoring and continue treatment. Continue group therapy and other unit activities. Continue psychiatric medications: Inc Effexor XR 75mg PO daily for depression symptoms Continue Trileptal 450mg PO BID as mood stabilizer for mood symptoms. Trileptal level still pending Start Vistaril PRN for anxiety Continue follow up
[2016-12-13] MEDS: diphenhydrAMINE 50 MG CAP PO PRN (20:56)
[2016-12-14] MEDS: OXcarbazepine 150 MG TAB PO SCH ×2 (08:38→21:09)
[2016-12-14] MEDS ORDERED: VENLAFAXINE HCL 75 MG TAB PO SCH (09:00)
--- NOTE | 2016-12-14 11:54 | P.PN ---
Progress Note - Text Interval History: Patient is a 31-year-old female who was admitted due to suicidal ideation with a plan to cut her wrists. Patient was recently discharged from this hospital in October 2016. At that time her children were removed by CPS and they currently live with a friend. Patient reports that her lithium was discontinued when she was last seen at [facility] due to it not working. Patient was continued on Trileptal which was increased to 450 mg twice a day on her admission here. Patient has also been continued on Effexor. Patient reports today that she is not having any side effects from the medication, reports that she is no longer has any suicidal ideation. She states that she is still feeling slightly depressed but her thinking is clearer than when it was on admission. Patient states she's been eating well and has been attending groups. Patient states that she is feeling depressed, no manic symptoms. Patient reports that she is not sleeping well and has been using Benadryl on an as-needed basis for her sleep. Mental Status: Appearance/Attitude: Patient is neatly and appropriately dressed , makes good eye contact and is cooperative. Behavior: Patient does not display any psychomotor agitation or retardation. Speech/Language: Patient's speech is spontaneous and of normal volume and rhythm and she is coherent. Thought Process: Patient is goal-directed there is no evidence of circumstantial or tangential thought and no loose associations or flight of ideas. Thought Content: Patient is not having any auditory or visual hallucinations and she denies any paranoid or delusional ideation. Patient denies any racing thoughts, states she is still feeling slightly depressed. Patient reports that her sleep is still not good and her appetite is fair. Patient states that she is not having any manic symptoms. She feels her thinking is slightly clearer than it was when she was admitted. Suicidal/Homicidal Ideation: Patient denies any suicidal or homicidal ideation at this time. Sensorium/Cognition: Patient is alert and oriented to person, place, and time and her memory is grossly intact. Mood/Affect: Patient's mood is slightly depressed and her affect is appropriate. Insight/Judgement: Patient's insight and judgment are fair. Assessment: Patient reports that she continues to feel slightly depressed but states that she is no longer having suicidal ideation. She reports her thinking has cleared slightly since her admission. She is on an increased dose of Trileptal and was begun on Effexor which was increased to 75 mg yesterday. Patient does have a history of manic symptoms in the past. Patient also received an injection of Invega sustenna 156 mg and her next injection is due on December 29. Patient reports her sleeping is still poor. Plan: Patient will continue on Trileptal 4 and 50 mg twice a day which was increased at the time of her admission. I will decrease her Effexor back to 37- 1/2 mg extended release in the morning from 75 mg so as not to cause a manic episode. Patient will continue on her Invega sustenna her next injection not due till December 29. I discussed with the patient the use of melatonin and she will begin 5 mg at bedtime to target her sleep and I suggested she try not to use the Benadryl and see if the melatonin is more effective for her. Patient was encouraged to continue to attend groups and activities and participate. Patient continues to require hospitalization to stabilize her mood.
[2016-12-14] MEDS: MELATONIN 5 MG TABLET PO SCH (21:08)
[2016-12-15 06:41] VITALS: TEMP 98.1
[2016-12-15] MEDS: OXcarbazepine 150 MG TAB PO SCH ×2 (08:32→21:01)
[2016-12-15] MEDS: VENLAFAXINE HCL ER 37.5 MG CAP PO SCH (08:32)
--- NOTE | 2016-12-15 15:19 | P.PN ---
Progress Note - Text Interval History: Patient is a 31-year-old female who was seen today and reports that she slept quite well last evening with the melatonin. She states that she feels rested this morning and doesn't have a hangover and she has when using Benadryl in the past. Patient reports that she still is feeling slightly depressed but reports no suicidal ideation at this time. She does not endorse any manic symptoms at this time here and she states she is much less depressed than she was on admission. She states she has been attending groups and activities and has been eating well. She states her focus and concentration are much improved that she has been able to read while she has been on the inpatient unit. Patient reported no increase in her depressive symptoms with my decrease in her Effexor. Mental Status: Appearance/Attitude: Patient is neatly and appropriately groomed , makes good eye contact and is cooperative. Behavior: Patient does not display any psychomotor agitation or retardation. Speech/Language: Patient's speech is spontaneous and of normal volume and rhythm and she is coherent. Thought Process: Patient is goal directed and there is no evidence of circumstantial or tangential thought and no loose associations or flight of ideas. Thought Content: Patient denies any auditory or visual hallucinations no paranoid or delusional ideation is elicited. Patient reports that she is not having any manic symptoms and states that she is able to focus and concentrate and has been reading on the unit. She states that she is sleeping well with the melatonin and her appetite is good. Suicidal/Homicidal Ideation: Patient denies any current suicidal or homicidal ideation. Sensorium/Cognition: Patient is alert and oriented to person, place, and time and her memory is grossly intact. Mood/Affect: Patient remains slightly depressed and her affect is appropriate. Insight/Judgement: Patient's insight and judgment are fair Assessment: Patient reports that she is doing well feeling much less depressed, sleeping much better and her concentration and focus have improved. She is not expressing any suicidal ideation. Patient reports that she has been attending groups and activities and has found some of them helpful. patient is not having any side effects from her medication. Plan: Patient will continue on Trileptal 450 mg twice a day to target her mood, she will continue on Effexor 37.5 mg extended release to target her depression and melatonin 5 mg at bedtime to target her sleep disorder. Patient is receiving Invega sustenna and is not due for her next injection until . Patient and i discussed discharge tomorrow.
[2016-12-15] MEDS: MELATONIN 5 MG TABLET PO SCH (21:00)
[2016-12-16 06:57] VITALS: BP 92/50; PULSE 61; RESP 16
[2016-12-16] MEDS: OXcarbazepine 150 MG TAB PO SCH (09:09)
[2016-12-16] MEDS: VENLAFAXINE HCL ER 37.5 MG CAP PO SCH (09:09)
--- NOTE | 2016-12-16 11:31 | P.DS ---
Providers Date of admission: 12/11/16 18:26 Expected date of discharge: 12/16/16 Attending physician: Debbie Gama MD Consults: 12/11/16 18:35 Consult Physician Routine Consulting Provider: Isael Bazan Consult Reason/Comments: H & P & medical management Do you want consulting provider notified?: Yes Primary care physician: Isael Bazan Hospital Course: Discharge Diagnoses: Bipolar 1 disorder, current episode depressed, cannabis use disorder, moderate Reason for Admission: Patient is a 31-year-old female presented to the emergency room reporting that she was feeling suicidal and had a plan to cut her wrists with a knife. Patient was requesting admission because she had been feeling suicidal over the last week after her children were removed from her home by CPS and are now living with one of her friends. Patient reported that she had been feeling depressed for months, hopeless and worthless and feeling helpless. She reported a decrease in her energy and interest and motivation to do things. Patient also reported a poor appetite and her concentration was poor. Patient was not reporting any psychotic symptoms and did not endorse any manic symptoms on admission. Patient has been compliant with her medications and follow-up at [facility] where her medications were recently changed from lithium to Trileptal. She continues to receive Invega Sustenna on a monthly basis. Hospital Course: Patient was admitted on a voluntary basis, routine laboratory studies were ordered and a medical consultation was obtained. Patient was also ordered group and activity therapy which she attended and participated in. Patient's Trileptal dose was increased to 450 mg twice a day and she was begun on Effexor to target her depression and stabilize her mood. Patient's Effexor was increased to 75 mg and was decreased back to 37.5 mg to prevent a manic episode. Patient reported that she was no longer feeling depressed, her appetite had improved and her concentration had improved and she was reading books on the unit. Patient states that she was also more motivated to do things and had more interest and was no longer feeling hopeless or helpless. Patient continued to report difficulty sleeping and so was started on melatonin 5 mg at bedtime which she reported gave her restful sleep and she felt much better than using the Benadryl which she states was making her feel "hung over" in the morning. Patient reported no side effects from the medication and there is no evidence of manic behavior. Patient was no longer reporting any suicidal ideation, was no longer feeling depressed and reported that she was sleeping and eating well. Mental Status:Appearance/Attitude: Patient was neatly and appropriately dressed , made good eye contact and was cooperative. Behavior: Patient displayed no psychomotor agitation or retardation. Speech/Language: Patient's speech was spontaneous and of normal volume and rhythm and she was coherent. Thought Process: Patient was goal-directed and there is no evidence of circumstantial or tangential thought and no loose associations or flight of ideas. Thought Content: Patient denied any auditory or visual hallucinations and no delusions or paranoid ideation were elicited. Patient denied feeling hopeless, helpless or worthless and she stated that she was eating and sleeping well. Patient reported she was able to concentrate and focus and was reading books on the unit. Patient stated she had more energy and had more motivation and interest to do things. Suicidal/Homicidal Ideation: Patient denied any current suicidal or homicidal ideation. Sensorium/Cognition: Patient was alert and oriented to person, place, and time and her memory was grossly intact. Mood/Affect: Patient's mood was euthymic and her affect was appropriate. Insight/Judgement: Patient's insight and judgment are fair. Laboratory Last Values WBC 4.3 k/uL (3.8-10.6) 12/12/16 08:16 RBC 4.46 m/uL (3.80-5.40) 12/12/16 08:16 Hgb 13.4 gm/dL (11.4-16.0) 12/12/16 08:16 Hct 39.6 % (34.0-46.0) 12/12/16 08:16 MCV 88.7 fL (80.0-100.0) 12/12/16 08:16 MCH 30.1 pg (25.0-35.0) 12/12/16 08:16 MCHC 33.9 g/dL (31.0-37.0) 12/12/16 08:16 RDW 14.6 % (11.5-15.5) 12/12/16 08:16 Plt Count 168 k/uL (150-450) 12/12/16 08:16 Neutrophils % 50 % 12/12/16 08:16 Lymphocytes % 38 % 12/12/16 08:16 Monocytes % 4 % 12/12/16 08:16 Eosinophils % 6 % 12/12/16 08:16 Basophils % 1 % 12/12/16 08:16 Neutrophils # 2.2 k/uL (1.3-7.7) 12/12/16 08:16 Lymphocytes # 1.6 k/uL (1.0-4.8) 12/12/16 08:16 Monocytes # 0.2 k/uL (0-1.0) 12/12/16 08:16 Eosinophils # 0.3 k/uL (0-0.7) 12/12/16 08:16 Basophils # 0.0 k/uL (0-0.2) 12/12/16 08:16 Sodium 140 mmol/L (137-145) 12/12/16 08:16 Potassium 4.4 mmol/L (3.5-5.1) 12/12/16 08:16 Chloride 106 mmol/L (98-107) 12/12/16 08:16 Carbon Dioxide 25 mmol/L (22-30) 12/12/16 08:16 Anion Gap 9 mmol/L 12/12/16 08:16 BUN 9 mg/dL (7-17) 12/12/16 08:16 Creatinine 0.80 mg/dL (0.52-1.04) 12/12/16 08:16 Est GFR (MDRD) Af Amer >60 (>60 ml/min/1.73 sqM) 12/12/16 08:16 Est GFR (MDRD) Non-Af >60 (>60 ml/min/1.73 sqM) 12/12/16 08:16 Glucose 94 mg/dL (74-99) 12/12/16 08:16 Calcium 9.6 mg/dL (8.4-10.2) 12/12/16 08:16 Total Bilirubin 0.2 mg/dL (0.2-1.3) 12/12/16 08:16 AST 21 U/L (14-36) 12/12/16 08:16 ALT 44 U/L (9-52) 12/12/16 08:16 Alkaline Phosphatase 53 U/L (38-126) 12/12/16 08:16 Total Protein 6.4 g/dL (6.3-8.2) 12/12/16 08:16 Albumin 4.0 g/dL (3.5-5.0) 12/12/16 08:16 TSH 1.970 mIU/L (0.465-4.680) 12/12/16 08:16 Urine HCG, Qual Not Detected (Not Detectd) 12/11/16 15:54 Salicylates <1.0 mg/dL 12/11/16 16:31 Urine Opiates Screen Not Detected (NotDetected) 12/11/16 15:54 Ur Oxycodone Screen Not Detected (NotDetected) 12/11/16 15:54 Urine Methadone Screen Not Detected (NotDetected) 12/11/16 15:54 Ur Propoxyphene Screen Not Detected (NotDetected) 12/11/16 15:54 Acetaminophen <10.0 ug/mL 12/11/16 16:31 Ur Barbiturates Screen Not Detected (NotDetected) 12/11/16 15:54 Oxcarbazepine 7.7 ug/mL (10-35) L 12/12/16 08:16 U Tricyclic Antidepress Not Detected (NotDetected) 12/11/16 15:54 Ur Phencyclidine Scrn Not Detected (NotDetected) 12/11/16 15:54 Ur Amphetamines Screen Not Detected (NotDetected) 12/11/16 15:54 U Methamphetamines Scrn Not Detected (NotDetected) 12/11/16 15:54 U Benzodiazepines Scrn Not Detected (NotDetected) 12/11/16 15:54 [place] 0.2 mmol/L 12/11/16 16:31 Urine Cocaine Screen Not Detected (NotDetected) 12/11/16 15:54 U Marijuana (THC) Screen Detected (NotDetected) H 12/11/16 15:54 Risk Assessment: Patient is at low risk for self-harm due to a suicide attempt at the age of 13 and none since, no self-injurious behavior history and the patient is compliant with treatment and medication. Discharge Plan: Patient will be discharged to return home where she lives on her own. Patient will follow-up at [facility]. Patient will continue on melatonin 5 mg at bedtime, Trileptal 450 mg twice a day and Effexor 37.5 mg extended release in the morning she will be given prescriptions for these medications. Patient will continue on Invega Sustenna 156 mg due on December 29. Patient and I discussed the need to avoid using any cannabis. Patient Condition at Discharge: Stable Plan - Discharge Summary New Discharge Prescriptions: New Melatonin 5 mg PO HS #28 tab OXcarbazepine [Trileptal] 450 mg PO BID #86 tab Venlafaxine HCl ER [Effexor XR] 37.5 mg PO DAILY #14 cap Continue Paliperidone IM [Invega Sustenna] 156 mg IM Q30D #1 Discontinued diphenhydrAMINE [Benadryl] 50 mg PO HS PRN #60 cap PRN Reason: Insomnia OXcarbazepine [Trileptal] 300 mg PO BID #60 Discharge Medication List Paliperidone IM [Invega Sustenna] 156 mg IM Q30D #1 11/10/16 [Rx] Melatonin 5 mg PO HS #28 tab 12/16/16 [Rx] OXcarbazepine [Trileptal] 450 mg PO BID #86 tab 12/16/16 [Rx] Venlafaxine HCl ER [Effexor XR] 37.5 mg PO DAILY #14 cap 12/16/16 [Rx] Follow up Appointment(s)/Referral(s): [facility] [Outside] - 12/17/16 9:00 am (12/17/2016 @ 0900 with Mina Ho 12/23/2016 @ 15:30 with Ilana Lala) Isael Bazan MD [Primary Care Provider] - 1-2 days Patient Instructions/Handouts: Bipolar Disorder (GEN), Suicide Prevention for Adults (GEN) Activity/Diet/Wound Care/Special Instructions: Activity and diet as tolerated. Avoid the use of street drugs and alcohol. Take all medications as prescribed. When you are in need of refills on your medications please contact your medical provider and/or outpatient psychiatrist to have this done. Please go to scheduled outpatient appointment for aftercare treatment. If symptoms return or become worse call the crisis line at [phone] and/or go to the nearest emergency room for an evaluation. Discharge Disposition: HOME SELF-CARE
== END 2016-12-16 12:20 | disposition home or self-care (01) | DRG 885 ==
LOC: EC 15:37 → 3MHU 18:26
PROVIDERS: ADMIT Psychiatry & Neurology Psychiatry; ATTEND Psychiatry & Neurology Psychiatry
DX: F31.5 Bipolar disorder, current episode depressed, severe, with psychotic features (principal); R45.851 Suicidal ideations; Z91.19 Patient's noncompliance with other medical treatment and regimen; F41.9 Anxiety disorder, unspecified; G47.00 Insomnia, unspecified; F17.210 Nicotine dependence, cigarettes, uncomplicated; F11.21 Opioid dependence, in remission; F12.19 Cannabis abuse with unspecified cannabis-induced disorder; Z79.899 Other long term (current) drug therapy; Z60.2 Problems related to living alone; Z81.8 Family history of other mental and behavioral disorders; Z81.1 Family history of alcohol abuse and dependence
CPT/HCPCS: 36415; 80053; 80178; 80183; 80306; 81025; 82075; 83520; 84443; 85025; 99285

== ENCOUNTER 2018-07-13 15:47 | Emergency (ER) | payer OTHER ==
[2018-07-13 16:02] VITALS: RESP 16; TEMP 98.3
[2018-07-13] MEDS ORDERED: SODIUM CHLORIDE 0.9% 1,000 ML IV STA ×2 (16:19)
[2018-07-13] MEDS ORDERED: SODIUM CHLORIDE 0.9% 500 ML 500 ML IV STA (16:19)
--- NOTE | 2018-07-13 17:18 | ED ---
Syncope HPI - General Chief Complaint: Syncope Stated Complaint: Syncope Time Seen by Provider: 07/13/18 16:04 Source: patient, RN notes reviewed, old records reviewed Mode of arrival: ambulatory Limitations: no limitations - History of Present Illness Initial Comments: This is a 32-year-old female the ER for evaluation. Patient resents today for syncopal event that occurred last night. Denies any chest pain or shortness of breath is improved to diminished appetite, no drugs or alcohol abuse per patient. No recent change in medications. Patient states she is feels little bit weak throughout the day, no recurrent episodes of syncope or passing out and currently asymptomatic aside from weakness and dehydration MD Complaint: loss of consciousness -: days(s) Prodromal Symptoms: none -: second(s) Witnessed: yes - by bystander Injuries Sustained Associated with Event: None Current Symptoms: back to baseline, weakness History: previous syncopal episode Context: at rest Treatments Prior to Arrival: none - Related Data Home Medications Medication Instructions Recorded Confirmed Paliperidone IM [Invega Sustenna] 234 mg IM Q28D 07/13/18 07/13/18 Venlafaxine HCl ER [Effexor Xr] 75 mg PO DAILY 07/13/18 07/13/18 Previous Rx's Medication Instructions Recorded OXcarbazepine [Trileptal] 450 mg PO BID #86 tab 12/16/16 Allergies Allergy/AdvReac Type Severity Reaction Status Date / Time No Known Allergies Allergy Verified 07/13/18 16:28 Review of Systems ROS Statement: Those systems with pertinent positive or pertinent negative responses have been documented in the HPI. ROS Other: All systems not noted in ROS Statement are negative. Past Medical History Past Medical History: No Reported History Additional Past Medical History / Comment(s): First was a Vaginal Delivery in 2006, 9 lbs. 1 ounce. This is her second . she has had good care with [facility] since 11 weeks gestation.her blood type is A+ antibody is negative, rubella immune, RPR nonreactive, HIV nonreactive, hepatitis B negative. She declined quad screen but had a normal anatomy ultrasoundat 19 weeks. group beta strep is negative. History of Any Multi-Drug Resistant Organisms: None Reported Past Surgical History: Orthopedic Surgery Additional Past Surgical History / Comment(s): 1.surgery on right leg 2003, cornelius in her femur. 2. LEEP Past Anesthesia/Blood Transfusion Reactions: No Reported Reaction Past Psychological History: Anxiety, Bipolar, Depression Smoking Status: Current every day smoker Past Drug Use History: Marijuana General Exam Limitations: no limitations General appearance: alert, in no apparent distress Head exam: Present: atraumatic, normocephalic, normal inspection Eye exam: Present: normal appearance, PERRL, EOMI. Absent: scleral icterus, co njunctival injection, periorbital swelling ENT exam: Present: normal exam, mucous membranes moist Neck exam: Present: normal inspection. Absent: tenderness, meningismus, lymphadenopathy Respiratory exam: Present: normal lung sounds bilaterally. Absent: respiratory distress, wheezes, rales, rhonchi, stridor Cardiovascular Exam: Present: regular rate, normal rhythm, normal heart sounds. Absent: systolic murmur, diastolic murmur, rubs, gallop, clicks GI/Abdominal exam: Present: soft, normal bowel sounds. Absent: distended, tenderness, guarding, rebound, rigid Extremities exam: Present: normal inspection, full ROM, normal capillary refill. Absent: tenderness, pedal edema, joint swelling, calf tenderness Back exam: Present: normal inspection Neurological exam: Present: alert, oriented X3, CN II-XII intact Psychiatric exam: Present: normal affect, normal mood Skin exam: Present: warm, dry, intact, normal color. Absent: rash Course Vital Signs 07/13/18 07/13/18 15:59 18:13 Temperature 98.3 F Pulse Rate 111 H 65 Respiratory 16 16 Rate Blood Pressure 103/57 112/65 O2 Sat by Pulse 97 99 Oximetry - Reevaluation(s) Reevaluation #1: 07/13/18 18:33 Medical record is reviewed Reevaluation #2: 07/13/18 18:33 Patient symptoms are significantly improved with hydration EKG Findings - EKG Comments: EKG Findings:: EKG shows NSR rate of 76 MT 144 QTc 425 Medical Decision Making - Medical Decision Making 32 female the ER syncopal event improvement with hydration, patient is able to walk and ambulate without difficulty. Patient can be discharged home - Lab Data Result diagrams: 07/13/18 16:30 07/13/18 16:30 Lab Results 07/13/18 07/13/18 07/13/18 Range/Units 16:30 16:30 16:30 WBC 7.0 (3.8-10.6) k/uL RBC 4.69 (3.80-5.40) m/uL Hgb 13.7 (11.4-16.0) gm/dL Hct 41.6 (34.0-46.0) % MCV 88.6 (80.0-100.0) fL MCH 29.2 (25.0-35.0) pg MCHC 33.0 (31.0-37.0) g/dL RDW 13.5 (11.5-15.5) % Plt Count 188 (150-450) k/uL Neutrophils % 69 % Lymphocytes % 24 % Monocytes % 3 % Eosinophils % 2 % Basophils % 1 % Neutrophils # 4.9 (1.3-7.7) k/uL Lymphocytes # 1.7 (1.0-4.8) k/uL Monocytes # 0.2 (0-1.0) k/uL Eosinophils # 0.1 (0-0.7) k/uL Basophils # 0.1 (0-0.2) k/uL PT 10.3 (9.0-12.0) sec INR 1.0 (<1.2) APTT 24.6 (22.0-30.0) sec D-Dimer 0.25 (<0.60) mg/L FEU Sodium 138 (137-145) mmol/L Potassium 3.7 (3.5-5.1) mmol/L Chloride 104 (98-107) mmol/L Carbon Dioxide 27 (22-30) mmol/L Anion Gap 7 mmol/L BUN 5 L (7-17) mg/dL Creatinine 0.60 (0.52-1.04) mg/dL Est GFR (CKD-EPI)AfAm >90 (>60 ml/min/1.73 sqM) Est GFR (CKD-EPI)NonAf >90 (>60 ml/min/1.73 sqM) Glucose 101 H (74-99) mg/dL Calcium 9.4 (8.4-10.2) mg/dL Magnesium 1.6 (1.6-2.3) mg/dL Total Bilirubin 0.4 (0.2-1.3) mg/dL AST 41 H (14-36) U/L ALT 79 H (9-52) U/L Alkaline Phosphatase 57 (38-126) U/L Troponin I (0.000-0.034) ng/mL Total Protein 6.4 (6.3-8.2) g/dL Albumin 3.9 (3.5-5.0) g/dL Urine Color Urine Appearance (Clear) Urine pH (5.0-8.0) Ur Specific [place] (1.001-1.035) Urine Protein (Negative) Urine Glucose (UA) (Negative) Urine Ketones (Negative) Urine Blood (Negative) Urine Nitrite (Negative) Urine Bilirubin (Negative) Urine Urobilinogen (<2.0) mg/dL Ur Leukocyte Esterase (Negative) Urine HCG, Qual (Not Detectd) 07/13/18 07/13/18 07/13/18 Range/Units 16:30 16:30 16:30 WBC (3.8-10.6) k/uL RBC (3.80-5.40) m/uL Hgb (11.4-16.0) gm/dL Hct (34.0-46.0) % MCV (80.0-100.0) fL MCH (25.0-35.0) pg MCHC (31.0-37.0) g/dL RDW (11.5-15.5) % Plt Count (150-450) k/uL Neutrophils % % Lymphocytes % % Monocytes % % Eosinophils % % Basophils % % Neutrophils # (1.3-7.7) k/uL Lymphocytes # (1.0-4.8) k/uL Monocytes # (0-1.0) k/uL Eosinophils # (0-0.7) k/uL Basophils # (0-0.2) k/uL PT (9.0-12.0) sec INR (<1.2) APTT (22.0-30.0) sec D-Dimer (<0.60) mg/L FEU Sodium (137-145) mmol/L Potassium (3.5-5.1) mmol/L Chloride (98-107) mmol/L Carbon Dioxide (22-30) mmol/L Anion Gap mmol/L BUN (7-17) mg/dL Creatinine (0.52-1.04) mg/dL Est GFR (CKD-EPI)AfAm (>60 ml/min/1.73 sqM) Est GFR (CKD-EPI)NonAf (>60 ml/min/1.73 sqM) Glucose (74-99) mg/dL Calcium (8.4-10.2) mg/dL Magnesium (1.6-2.3) mg/dL Total Bilirubin (0.2-1.3) mg/dL AST (14-36) U/L ALT (9-52) U/L Alkaline Phosphatase (38-126) U/L Troponin I <0.012 (0.000-0.034) ng/mL Total Protein (6.3-8.2) g/dL Albumin (3.5-5.0) g/dL Urine Color Light Yellow Urine Appearance Clear (Clear) Urine pH 6.5 (5.0-8.0) Ur Specific [place] 1.004 (1.001-1.035) Urine Protein Negative (Negative) Urine Glucose (UA) Negative (Negative) Urine Ketones Negative (Negative) Urine Blood Negative (Negative) Urine Nitrite Negative (Negative) Urine Bilirubin Negative (Negative) Urine Urobilinogen 2.0 (<2.0) mg/dL Ur Leukocyte Esterase Negative (Negative) Urine HCG, Qual Not Detected (Not Detectd) Disposition Clinical Impression: Vasovagal syncope Disposition: HOME SELF-CARE Condition: Good Instructions (If sedation given, give patient instructions): Syncope (ED) Is patient prescribed a controlled substance at d/c from ED?: No Referrals: Isael Bazan MD [Primary Care Provider] - 1-2 days
[2018-07-13 17:23] LABS: Appearance,Urine Clear (Clear); Bilirubin,Urine Negative (Negative); Blood,Urine Negative (Negative); Color,Urine Light Yellow; Glucose,Urine (UA) Negative (Negative); Ketones,Urine Negative (Negative); Leukocyte Esterase,Urine Negative (Negative); Nitrite,Urine Negative (Negative); PH, Urine 6.5 (5.0-8.0); Protein,Urine Negative (Negative); Specific Gravity,Urine 1.004 (1.001-1.035)
[2018-07-13 17:25] LABS: Basophils # (A) 0.1 k/uL (0-0.2); Basophils % (A) 1 %; Eosinophils # (A) 0.1 k/uL (0-0.7); Eosinophils % (A) 2 %; HCT 41.6 % (34.0-46.0); HGB 13.7 gm/dL (11.4-16.0); Lymphocytes # (A) 1.7 k/uL (1.0-4.8); Lymphocytes % (A) 24 %; MCH 29.2 pg (25.0-35.0); MCV 88.6 fL (80.0-100.0); Mean Platelet Volume 8.1; Monocytes # (A) 0.2 k/uL (0-1.0); Monocytes % (A) 3 %; Neutrophils # (A) 4.9 k/uL (1.3-7.7); Neutrophils % (A) 69 %; Platelet Count 188 k/uL (150-450); RBC 4.69 m/uL (3.80-5.40); RDW 13.5 % (11.5-15.5)
[2018-07-13 17:32] LABS: ALT 79 U/L (9-52); AST 41 U/L (14-36); Albumin 3.9 g/dL (3.5-5.0); Alkaline Phosphatase 57 U/L (38-126); Anion Gap 7 mmol/L; Blood Urea Nitrogen 5 mg/dL (7-17); Calcium 9.4 mg/dL (8.4-10.2); Carbon Dioxide 27 mmol/L (22-30); Chloride 104 mmol/L (98-107); Glucose 101 mg/dL (74-99); Magnesium 1.6 mg/dL (1.6-2.3); Potassium 3.7 mmol/L (3.5-5.1); Sodium 138 mmol/L (137-145); Total Bilirubin 0.4 mg/dL (0.2-1.3); Total Protein 6.4 g/dL (6.3-8.2)
[2018-07-13 17:37] LABS: D-Dimer 0.25 mg/L FEU (<0.60); Partial Thromboplastin Time 24.6 sec (22.0-30.0); Prothrombin Time 10.3 sec (9.0-12.0)
[2018-07-13 18:14] VITALS: BP 112/65; PULSE 65
== END 2018-07-13 18:13 | disposition home or self-care (01) ==
LOC: EC 15:47
DX: R55 Syncope and collapse (principal); R53.1 Weakness; E86.0 Dehydration; F41.9 Anxiety disorder, unspecified; F32.9 Major depressive disorder, single episode, unspecified; F17.200 Nicotine dependence, unspecified, uncomplicated; Z21 Asymptomatic human immunodeficiency virus [HIV] infection status; Z79.899 Other long term (current) drug therapy
CPT/HCPCS: 36415; 80053; 81003; 81025; 83735; 84484; 85025; 85379; 85610; 85730; 93005; 96360; 99284

== ENCOUNTER 2018-10-08 14:52 | Emergency (ER) | payer OTHER ==
[2018-10-08 15:17] VITALS: BP 98/56; PULSE 79; RESP 16; TEMP 98.2
[2018-10-08] MEDS ORDERED: KETOROLAC 60 MG/2 ML VIAL IM STA (15:58)
--- NOTE | 2018-10-08 16:11 | ED ---
ENT HPI - General Chief complaint: Dental/Oral Stated complaint: Dental Pain Time Seen by Provider: 10/08/18 15:54 Source: patient Mode of arrival: ambulatory Limitations: no limitations - History of Present Illness Initial comments: Patient is a 33-year-old female presenting to the emergency Department with complaints of left-sided dental pain 2 weeks. Patient states he has not seen a dentist in about 3 years. Patient states that pain has been increasing the last 2 weeks along with some mild swelling. Patient has been taking Tylenol for the pain but is not helping. Patient denies fever, chills, nausea, vomiting, difficult to swelling. No other complaints at this time. - Related Data Home Medications Medication Instructions Recorded Confirmed Paliperidone IM [Invega Sustenna] 234 mg IM Q28D 07/13/18 07/13/18 Venlafaxine HCl ER [Effexor Xr] 75 mg PO DAILY 07/13/18 07/13/18 Previous Rx's Medication Instructions Recorded OXcarbazepine [Trileptal] 450 mg PO BID #86 tab 12/16/16 Penicillin V Potassium [Pen Vee K] 500 mg PO QID 7 Days #28 tablet 10/08/18 Allergies Allergy/AdvReac Type Severity Reaction Status Date / Time No Known Allergies Allergy Verified 10/08/18 15:17 Review of Systems ROS Statement: Those systems with pertinent positive or pertinent negative responses have been documented in the HPI. ROS Other: All systems not noted in ROS Statement are negative. Past Medical History Past Medical History: No Reported History Additional Past Medical History / Comment(s): First was a Vaginal Delivery in 2006, 9 lbs. 1 ounce. This is her second . she has had good care with [facility] since 11 weeks gestation.her blood type is A+ antibody is negative, rubella immune, RPR nonreactive, HIV nonreactive, hepatitis B negative. She declined quad screen but had a normal anatomy ultrasoundat 19 weeks. group beta strep is negative. History of Any Multi-Drug Resistant Organisms: None Reported Past Surgical History: Orthopedic Surgery Additional Past Surgical History / Comment(s): 1.surgery on right leg 2003, cornelius in her femur. 2. LEEP Past Anesthesia/Blood Transfusion Reactions: No Reported Reaction Past Psychological History: Anxiety, Bipolar, Depression Smoking Status: Current every day smoker Past Drug Use History: Marijuana General Exam - General Exam Comments Initial Comments: GENERAL: Well-appearing, well-nourished and in no acute distress. HEAD: Atraumatic, normocephalic. EYES: Pupils equal round and reactive to light, extraocular movements intact, sclera anicteric, conjunctiva are normal. ENT: TMs normal, nares patent, oropharynx clear without exudates. Moist mucous membranes. Patient has several decaying teeth. Patient has erythema of the left upper gumline and mild swelling on the left upper jaw line. Pain with tenderness over the left upper teeth. NECK: Normal range of motion, supple without lymphadenopathy or JVD. LUNGS: Breath sounds clear to auscultation bilaterally and equal. No wheezes rales or rhonchi. HEART: Regular rate and rhythm without murmurs, rubs or gallops. ABDOMEN: Soft, nontender, normoactive bowel sounds. No guarding, no rebound. No masses appreciated. : Deferred EXTREMITIES: Normal range of motion, no pitting or edema. No clubbing or cya nosis. NEUROLOGICAL: Cranial nerves II through XII grossly intact. Normal speech, normal gait. PSYCH: Normal mood, normal affect. SKIN: Warm, Dry, normal turgor, no rashes or lesions noted. Limitations: no limitations Course Vital Signs 10/08/18 15:15 Temperature 98.2 F Pulse Rate 79 Respiratory 16 Rate Blood Pressure 98/56 O2 Sat by Pulse 100 Oximetry Medical Decision Making - Medical Decision Making Patient is a 33-year-old female complaining of dental pain 2 weeks. Patient has mild erythema and swelling of the left side of her mouth along with several decaying teeth. Patient has not seen a dentist in 3 years. Patient was given Toradol for her pain and course of antibiotics. Patient will follow up with dentist on Wednesday or Wednesday. Patient will be discharged home. Return parameters were discussed. Disposition Clinical Impression: Dental caries, Dental abscess Disposition: HOME SELF-CARE Condition: Stable Instructions (If sedation given, give patient instructions): Dental Abscess (ED), Dental Caries (ED) Additional Instructions: Please return to the Emergency Department if symptoms worsen or any other concerns. Follow-up with dentist in 1 to 3 days. Prescriptions: Penicillin V Potassium [Pen Vee K] 500 mg PO QID 7 Days #28 tablet Is patient prescribed a controlled substance at d/c from ED?: No Referrals: Isael Bazan MD [Primary Care Provider] - 1-2 days
== END 2018-10-08 16:27 | disposition home or self-care (01) ==
LOC: EC 14:52
DX: K02.9 Dental caries, unspecified (principal); K04.7 Periapical abscess without sinus; F41.9 Anxiety disorder, unspecified; F32.9 Major depressive disorder, single episode, unspecified; F17.200 Nicotine dependence, unspecified, uncomplicated; Z79.899 Other long term (current) drug therapy
CPT/HCPCS: 99282; 96372; J1885

== ENCOUNTER → 2018-11-18 | Outpatient (CLI) | payer OTHER ==
--- NOTE | 2018-11-18 10:21 | FL ---
EXAMINATION TYPE: FL UGI air DATE OF EXAM: 11/18/2018 COMPARISON: NONE HISTORY: Nausea and vomiting for 6 months TECHNIQUE: A double contrast UGI study is performed. 1 minute and 48 seconds of fluoroscopy time was utilized with 49 fluoroscopic images saved. FINDINGS: [place] image of the abdomen shows no gross abnormality. The esophagus shows normal motility and emptying into the stomach. No evidence of hiatal hernia or s tricture noted. The stomach shows normal distensibility and peristalsis. Thickened gastric rugal folds are seen throu ghout the stomach. No evidence of any mass or ulcer disease. No significant gastroesophageal reflux was seen during real time performance of this study. The duodenal bulb, sweep, and proximal small bowel loops are unremarkable. IMPRESSION: Thickened rugal folds within the stomach diffusely most commonly related to gastritis. En doscopy could be performed with consideration for biopsy. No focal ulcer is seen.
== END | disposition home or self-care (01) ==
LOC: RADUSWWP 09:32
PROVIDERS: ATTEND Family Medicine
DX: K31.89 Other diseases of stomach and duodenum (principal)
CPT/HCPCS: 74246

== ENCOUNTER 2020-04-21 06:49 | Emergency (ER) | payer OTHER ==
[2020-04-21 06:56] VITALS: BP 106/88; PULSE 107; RESP 18; TEMP 98.2
[2020-04-21] MEDS ORDERED: TOBRAMYCIN 0.3% OPHTH DROPS 5 ML BTL RIGHT EYE STA ×2 (07:03→07:21)
--- NOTE | 2020-04-21 07:07 | ED ---
Eye Problem HPI - General Chief complaint: Eye Problems Stated complaint: eye problem Time Seen by Provider: 04/21/20 06:57 Source: patient, RN notes reviewed Mode of arrival: ambulatory Limitations: no limitations - History of Present Illness Initial comments: This a 34-year-old female presents emergency Department with chief complaint of right eye irritation. Patient that she woke up this morning. She states her upper eyelid is swollen and slightly painful no blurred vision no contacts no trauma. Patient offers no other complaints. - Related Data Home Medications Medication Instructions Recorded Confirmed Paliperidone IM [Invega Sustenna] 234 mg IM Q28D 07/13/18 07/13/18 Venlafaxine HCl ER [Effexor Xr] 75 mg PO DAILY 07/13/18 07/13/18 Previous Rx's Medication Instructions Recorded OXcarbazepine [Trileptal] 450 mg PO BID #86 tab 12/16/16 Ibuprofen [Motrin] 600 mg PO Q8HR PRN #20 tab 10/08/18 Penicillin V Potassium [Pen Vee K] 500 mg PO QID 7 Days #28 tablet 10/08/18 Allergies Allergy/AdvReac Type Severity Reaction Status Date / Time No Known Allergies Allergy Verified 04/21/20 06:55 Review of Systems ROS Statement: Those systems with pertinent positive or pertinent negative responses have been documented in the HPI. ROS Other: All systems not noted in ROS Statement are negative. Past Medical History Past Medical History: No Reported History Additional Past Medical History / Comment(s): First was a Vaginal Delivery in 2006, 9 lbs. 1 ounce. This is her second . she has had good care with [facility] since 11 weeks gestation.her blood type is A+ antibody is negative, rubella immune, RPR nonreactive, HIV nonreactive, hepatitis B negative. She declined quad screen but had a normal anatomy ultrasoundat 19 weeks. group beta strep is negative. History of Any Multi-Drug Resistant Organisms: None Reported Past Surgical History: Orthopedic Surgery Additional Past Surgical History / Comment(s): 1.surgery on right leg 2003, cornelius in her femur. 2. LEEP Past Anesthesia/Blood Transfusion Reactions: No Reported Reaction Past Psychological History: Anxiety, Bipolar, Depression Smoking Status: Current every day smoker Past Alcohol Use History: None Reported Past Drug Use History: Marijuana General Exam Limitations: no limitations General appearance: alert, in no apparent distress Head exam: Present: atraumatic, normocephalic, normal inspection Eye exam: Present: normal appearance, PERRL, EOMI, periorbital swelling (Mild right upper with noted erythematous sty). Absent: scleral icterus, conjunctival injection ENT exam: Present: normal exam, normal oropharynx, mucous membranes moist, TM's normal bilaterally Neck exam: Present: normal inspection, full ROM. Absent: tenderness, meningismus, lymphadenopathy Respiratory exam: Present: normal lung sounds bilaterally. Absent: respiratory distress, wheezes, rales, rhonchi, stridor Cardiovascular Exam: Present: regular rate, normal rhythm, normal heart sounds. Absent: systolic murmur, diastolic murmur, rubs, gallop, clicks Course Vital Signs 04/21/20 06:52 Temperature 98.2 F Pulse Rate 107 H Respiratory 18 Rate Blood Pressure 106/88 O2 Sat by Pulse 96 Oximetry Medical Decision Making - Medical Decision Making 34-year-old female present for right eye irritation. Patient hasn't noted sty on exam. Patient was discharged with Tobrex and instructed to use warm compresses return parameters were discussed. Disposition Clinical Impression: Hordeolum of right eye Disposition: HOME SELF-CARE Condition: Stable Instructions (If sedation given, give patient instructions): Liam (ED) Additional Instructions: Use Tobrex eyedrops 1 drop to right eye every 4 hours for 7 days. Use warm compresses as directed.Please return to the Emergency Department if symptoms worsen or any other concerns. Is patient prescribed a controlled substance at d/c from ED?: No Referrals: Isael Bazan MD [Primary Care Provider] - 1-2 days Time of Disposition: 07:05
== END 2020-04-21 07:26 | disposition home or self-care (01) ==
LOC: EC 06:49
DX: H00.011 Hordeolum externum right upper eyelid (principal); F41.9 Anxiety disorder, unspecified; F31.9 Bipolar disorder, unspecified; F17.200 Nicotine dependence, unspecified, uncomplicated; Z79.899 Other long term (current) drug therapy
CPT/HCPCS: 99283

== ENCOUNTER 2022-01-18 12:51 | Emergency (ER) | payer OTHER ==
[2022-01-18 12:54] VITALS: TEMP 97.8
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
--- NOTE | 2022-01-18 13:57 | XR ---
EXAMINATION TYPE: XR shoulder complete LT DATE OF EXAM: 01/18/2022 1:30 PM INDICATION: Patient age:Female; 36 years old; Reason for study: fall; COMPARISON: None TECHNIQUE: The left shoulder was examined in AP, internally rotated and scapular Y projections. . FINDINGS: No evidence of acute osseous pathology, joint dislocation, or soft tissue swelling. The remaining por tions of the visualized chest are unremarkable. IMPRESSION: No acute osseous pathology.
--- NOTE | 2022-01-18 13:58 | XR ---
EXAMINATION TYPE: XR lumbosacral spine min 4V DATE OF EXAM: 01/18/2022 1:30 PM INDICATION: Patient age:Female; 36 years old; Reason for study: fall; [facility]. COMPARISON: None TECHNIQUE: Frontal, lateral , bilateral oblique and coned in L5-S1 lateral views of the spine. FINDINGS: No evidence of any acute osseous pathology. No evidence of loss of vertebral body height i s seen. There is normal alignment of the lumbar vertebral bodies. No significant degeneration changes throughout the spine. IMPRESSION:
[2022-01-18 14:23] VITALS: BP 140/80; PULSE 93; RESP 18
== END 2022-01-18 14:22 | disposition home or self-care (01) ==
LOC: EC 12:51
DX: M25.512 Pain in left shoulder (principal); M54.50 Low back pain, unspecified; F17.200 Nicotine dependence, unspecified, uncomplicated; V43.52XA Car driver injured in collision with other type car in traffic accident, initial encounter; Y92.410 Unspecified street and highway as the place of occurrence of the external cause
CPT/HCPCS: 72110; 99283